=== PATIENT | male | born 1945 | race Caucasian/White ===

== ENCOUNTER 2016-05-30 10:47 | Emergency (ER) | payer OTHER ==
[~2016-05-30] VITALS: Ht 177.8 cm; Wt 90.4 kg
[~2016-05-30 10:47] MED LIST: ASPI81TA28 PO; ATOR-26 PO; CIPR-255 PO; CLOP1TAB15 PO; LPR25 PO; NITR0.4S UT
[2016-05-30 10:59] VITALS: TEMP 36.6; Ht 177.8 cm; Wt 90.4 kg
--- NOTE | 2016-05-30 11:43 | DIAGNOSTIC IMAGING REPORT ---
LEFT FOURTH FINGER 3 VIEWS HISTORY: injured left fourth finger COMPARISON: None. FINDINGS: There is no fracture or dislocation. Soft tissue swelling at the PIP joint. No radiopaque foreign bodies. IMPRESSION: No fractures. Electronically signed by: Cory Trejo M.D. 05/30/2016 11:41 AM Dictated Date/Time: 05/30/2016 11:40 AM
--- NOTE | 2016-05-30 12:06 | EMERGENCY ROOM VISIT NOTE ---
ED Visit Note First contact with patient: 11:18 CHIEF COMPLAINT: Left fourth finger injury yesterday HISTORY OF PRESENT ILLNESS: Patient is a [id number] 71-year-old white male who presents to emergency department for evaluation of pain, swelling and bruising in the left fourth finger after he accidentally hit it with a hammer. He is on aspirin and Plavix. He states that he struck himself near the DIP crease. He developed a blood blister shortly after the initial injury. The tip of the finger was initially swollen, then became bruised, and as the evening went on, the bruising spread through the entire fourth finger. He has stiffness due to the swelling and slight discomfort. He rates his pain a 1/10. He applied ice to the area. REVIEW OF SYSTEMS: Review of systems as per HPI. All other systems reviewed were negative. At least 6 systems reviewed. PMH: Electronic medical records are reviewed and summarized as above/below. See Problem List. SOCIAL HISTORY: Patient lives at home with his . PHYSICAL EXAM: Vital Signs: Reviewed Nurse's notes. CONSTITUTIONAL: Patient is a pleasant 71-year-old white male who is awake and alert and in no acute distress. MUSCULOSKELETAL: Examination of the left fourth finger show circumferential swelling and ecchymosis. He has an intact, flat blood blister on the palmar aspect of the finger over the DIP crease. Range of motion is limited secondary to soft tissue swelling. He is tender primarily at the DIP joint. There is no laceration, no subungual hematoma. EMERGENCY DEPARTMENT COURSE: X-rays of the left fourth finger were obtained and did not note fracture. Patient declined a splint and prescription analgesia. Conservative care measures were discussed. Differential diagnosis includes fracture, dislocation, contusion, crush injury, among others. LEFT FOURTH FINGER 3 VIEWS HISTORY: injured left fourth finger COMPARISON: None. FINDINGS: There is no fracture or dislocation. Soft tissue swelling at the PIP joint. No radiopaque foreign bodies. IMPRESSION: No fractures. Problem List Medical Problems: (1) Complicated UTI (urinary tract infection) Status: Resolved (2) Coronary artery disease Status: Chronic (3) Essential (Primary) Hypertension Status: Chronic (4) Hypercholesteremia Status: Chronic (5) Pyelonephritis Status: Resolved Surgical Problems: (1) Stented coronary artery Status: Resolved Current/Historical Medications Scheduled Aspirin (Aspirin Ec), 81 MG PO DAILY Atorvastatin (Lipitor), 80 MG PO QPM Clopidogrel (Plavix), 75 MG PO DAILY Metoprolol Tartrate (Lopressor), 25 MG PO Q12 Scheduled PRN Nitroglycerin (Nitrostat), 0.4 MG UT UD PRN for Chest Pain Allergies Coded Allergies: No Known Allergies (Verified , 05/30/16) Vital Signs Date Time Temp Pulse Resp B/P Pulse Ox O2 Delivery O2 Flow Rate FiO2 05/30/16 12:32 88 19 123/76 98 05/30/16 10:59 36.6 98 16 129/78 98 Room Air Departure Information Impression Primary Impression: Contusion of finger, left Referrals Negro Michelle M.D. (PCP) Patient Instructions My [facility] Additional Instructions Acetaminophen(Tylenol) may be used for fever or pain. Use 1000mg every six hours as needed. Avoid using more than 3000mg in a 24 hour period. This medication can be taken if you need to drive, work, or perform activities which may be dangerous when taking narcotic pain medication. Ice compresses for 20 minutes at a time four times daily for 2-3 days. Rest and elevate your injury. Continue current medications. Return to the ER immediately for any numbness, tingling, severe pain, extreme swelling in the extremity or as needed. Followup with your family doctor or orthopedic surgery if no improvement in 5-7 days.
[2016-05-30 12:32] VITALS: BP 123/76; PULSE 88; O2SAT 98
== END 2016-05-30 12:34 | disposition home or self-care (01) ==
LOC: C.EDB 10:47 → C.EDD 12:34
DX: S60.042A Contusion of left ring finger without damage to nail, initial encounter (principal); W22.8XXA Striking against or struck by other objects, initial encounter; Z79.82 Long term (current) use of aspirin; Z79.01 Long term (current) use of anticoagulants; Z87.440 Personal history of urinary (tract) infections; I25.10 Atherosclerotic heart disease of native coronary artery without angina pectoris; I10 Essential (primary) hypertension; E78.00 Pure hypercholesterolemia, unspecified; Z95.5 Presence of coronary angioplasty implant and graft

== ENCOUNTER 2016-09-10 17:39 | Emergency (ER) | payer OTHER ==
[~2016-09-10] VITALS: Ht 175.3 cm; Wt 88.7 kg
[~2016-09-10 17:39] MED LIST changes: -CIPR-255 PO
[2016-09-10 17:48] VITALS: TEMP 36.8; Ht 175.3 cm; Wt 88.7 kg
[2016-09-10] MEDS ORDERED: KETOROLAC TROMETHAMINE 60 MG/2 ML VIAL IM STA (18:02)
[2016-09-10] MEDS ORDERED: OXYCODONE HCL IR 5 MG TAB (IMMEDIATE RELEASE) PO STA (18:02)
--- NOTE | 2016-09-10 18:22 | EMERGENCY ROOM VISIT NOTE ---
History Report prepared by Maurice: Ronny Burns Under the Supervision of: Dr. Horacio Palacios D.O. First contact with patient: 17:53 Chief Complaint: BACK PAIN Stated Complaint: BACK PAIN History of Present Illness The patient is a 71 year old male who presents to the Emergency Room with complaints of worsening back pain that began 2 day ago. He rates his pain currently a 7/10 in severity. At this time, the patient was working out, lifting weights, and doing sit ups. He noticed some left sided back pain but did not think anything of it. Last night he rolled over in his sleep and he heard/felt a "pop." He used ice and it was okay today. However, at dinner this evening the patient sneezed and experienced the worst pain of his life in the same area. He became nauseated, lightheaded, and diaphoretic. This has never happened to him before. He denies any chest pain, neck pain, abdominal pain, leg pain, or weakness. He has a past medical history of two cardiac stents. Source of History: patient Onset: two days ago Position: back Symptom Intensity: 7/10 Quality: sharp Timing: worsening Modifying Factors (Worsening): other (Sneezing) Associated Symptoms: + diaphoresis, + nausea, No neck pain, No chest pain, No SOB, No abdominal pain Note: He had an episode of lightheadedness. Review of Systems See HPI for pertinent positives & negatives. A total of 10 systems reviewed and were otherwise negative. Past Medical & Surgical Medical Problems: (1) Complicated UTI (urinary tract infection) (2) Coronary artery disease (3) Essential (Primary) Hypertension (4) Hypercholesteremia (5) Pyelonephritis Surgical Problems: (1) Stented coronary artery Family History FH ischemic heart disease FH: coronary artery bypass surgery FH: diabetes mellitus Social History Smoking Status: Never Smoker Smokeless Tobacco Use: No Alcohol Use: occasionally Drug Use: none Marital Status: Housing Status: lives with family Occupation Status: retired Current/Historical Medications Scheduled Aspirin (Aspirin Ec), 81 MG PO DAILY Atorvastatin (Lipitor), 80 MG PO QPM Clopidogrel (Plavix), 75 MG PO DAILY Metoprolol Tartrate (Lopressor), 25 MG PO Q12 Scheduled PRN Nitroglycerin (Nitrostat), 0.4 MG UT UD PRN for Chest Pain Oxycodone Immediate Rel Tab (Roxicodone Ir), 1-2 TAB PO Q4H PRN for Severe Pain Allergies Coded Allergies: No Known Allergies (Verified , 09/10/16) Physical Exam Vital Signs Date Time Temp Pulse Resp B/P (MAP) Pulse Ox O2 Delivery O2 Flow Rate FiO2 09/10/16 19:21 77 18 141/80 96 09/10/16 17:48 36.8 73 18 133/74 96 Room Air Physical Exam GENERAL: Patient is awake, alert, and in no acute distress. Patient is uncomfortable appearing and showing moderate signs of anxiety. EYES: The conjunctivae are clear. The pupils are round and reactive. EARS, NOSE, MOUTH AND THROAT: The nose is without any evidence of any deformity. Mucous membranes are moist tongue is midline NECK: The neck is nontender and supple. RESPIRATORY: Normal respiratory effort is noted there is no evidence of wheezing rhonchi or rales CARDIOVASCULAR: Regular rate and rhythm noted there no murmurs rubs or gallops normal S1 normal S2 GASTROINTESTINAL: The abdomen is soft. Bowel sounds are present in all quadrants. Abdomen is nontender BACK: Slight tenderness to the midline in the low thoracic and upper lumbar spine. Tenderness is more severe over the left flank and left lateral rib cage. MUSCULOSKELETAL/EXTREMITIES: There is no evidence of gross deformity full range of motion is noted in the hips and shoulders SKIN: There is no obvious evidence of any rash. There are no petechiae, pallor or cyanosis noted. NEUROLOGIC: Patient is awake alert and oriented x3 strength is symmetric patellar reflexes are 2+ bilaterally Medical Decision & Procedures ER Provider Diagnostic Interpretation: Radiology results as stated below per my review and radiologist interpretation: LUMBAR SPINE CT CT DOSE: HISTORY: Low back pain. TECHNIQUE: Multiaxial CT images of the lumbar spine were performed and reformatted in the sagittal and coronal plane without the use of contrast. A dose lowering technique was utilized adhering to the principles of ALARA. COMPARISON: None. FINDINGS: Severe facet osteoarthritis seen from L3 through S1. Mild disc space narrowing at L2-L3 and L5-S1. There is a Schmorl's node at the superior endplate of L3. Small endplate osteophytes throughout the lumbar spine. No fracture or subluxation. Small disc bulges with facet hypertrophy at L2-L3 and L3-L4 resulting in mild central canal narrowing. There is also disc bulge and ligamentum and facet hypertrophy at L4-L5 resulting and moderate to severe central canal narrowing. The visualized retroperitoneal soft tissues are unremarkable. Partial fusion of the bilateral sacroiliac joints. IMPRESSION: No fracture or subluxation within the lumbar spine. Degenerative changes as described above. This is most pronounced at the L4-L5 level. Electronically signed by: Cory Trejo M.D. 09/10/2016 6:39 PM Dictated Date/Time: 09/10/2016 6:[address]IC SPINE WITHOUT CT DOSE: 1407.53 mGy.cm CLINICAL HISTORY: Severe left-sided back pain TECHNIQUE: Helical images were acquired in the transverse plane. Sagittal and coronal reformatted images were acquired. A dose lowering technique was utilized adhering to the principles of ALARA. COMPARISON STUDY: None. FINDINGS: There are dependent atelectatic changes present. No paraspinal masses are visualized in this noncontrast study. There are multilevel degenerative changes present. No acute fractures are visualized. There are no subluxations. No destructive lesions are visualized. IMPRESSION: 1. Mild multilevel degenerative change 2. No acute fractures or traumatic subluxations 3. No destructive lesions are visualized Electronically signed by: Freddy Miranda M.D. 09/10/2016 6:33 PM Dictated Date/Time: 09/10/2016 6:29 PM CHEST ONE VIEW PORTABLE CLINICAL HISTORY: left back pain COMPARISON STUDY: 05/17/2015 FINDINGS: The cardiac and mediastinal contours are normal. There is no evidence of focal pulmonary consolidation. There is no evidence of failure. No pleural effusions are visualized.[ There are minor left basilar atelectatic changes IMPRESSION: No active disease in the chest. Electronically signed by: Freddy Miranda M.D. 09/10/2016 6:42 PM Dictated Date/Time: 09/10/2016 6:42 PM Medications Administered Medications (Trade) Dose Ordered Sig/Leatha Route Start Time Stop Time Status Last Admin Dose Admin Oxycodone HCl (Roxicodone Immediate Rel Tab) 10 mg NOW STAT PO 09/10/16 18:02 09/10/16 18:03 DC 09/10/16 18:12 10 MG Ketorolac Tromethamine (Toradol Inj) 60 mg NOW STAT IM 09/10/16 18:02 09/10/16 18:03 DC 09/10/16 18:12 60 MG Oxycodone HCl (Roxicodone Immediate Rel 5MG Home Pack) 1 homepack UD ONCE PO 09/10/16 19:30 09/10/16 19:31 DC 09/10/16 19:24 1 HOMEPACK ED Course 175: The patient was evaluated in room A10. A complete history and physical examination were performed. 1801: Ordered Toradol Inj 60 mg IM, Oxycodone HCl 10 mg PO 1914: Upon reevaluation, the patient is resting. I discussed the results and treatment plan with him. He verbalized agreement of the treatment plan. He was discharged home. Medical Decision Differential diagnosis: Etiologies such as musculoskeletal, disc herniation, fracture, aortic disease, metastatic disease, cord compression, discitis, infection, renal colic, gastrointestinal, acute exacerbation of chronic back pain, sciatica, cauda equina, as well as others were entertained. The patient is a 71-year-old male who presented to the emergency department for an evaluation of mid back pain. The patient states that he had musculoskeletal back pain which began after lifting. He states that he felt a "pop" in his back and his had back spasm and pain since. The patient was treated with pain medication in the emergency department. I discussed the patient's radiographic studies with him. He was encouraged to rest and avoid any strenuous activity. He was encouraged to continue all medications as prescribed and call his family doctor to schedule a follow-up appointment. He was also encouraged to return the emergency apartment immediately if symptoms change worsen or the need arises. Medication Reconcilliation Current Medication List: was personally reviewed by me Blood Pressure Screening Patient's blood pressure: Normal blood pressure Blood pressure disposition: Did not require urgent referral Impression Primary Impression: Low back pain Additional Impression: Mid back pain Scribe Attestation The scribe's documentation has been prepared under my direction and personally reviewed by me in its entirety. I confirm that the note above accurately reflects all work, treatment, procedures, and medical decision making performed by me. Departure Information Dispostion Home / Self-Care Prescriptions Oxycodone Immediate Rel Tab (ROXICODONE IR) 5 Mg Tab 1-2 TAB PO Q4H Y for Severe Pain, #24 TAB Prov: Horacio Palacios, 09/10/16 Referrals Negro Michelle M.D. (PCP) Forms HOME CARE DOCUMENTATION FORM, IMPORTANT VISIT INFORMATION Patient Instructions ED Low Back Pain Injury, My [facility] Additional Instructions Call your family to schedule a follow-up appointment. Rest and avoid any strenuous activity. Continue all medications as prescribed. Try using Motrin and Tylenol as directed for mild pain. Return to the emergency apartment immediately if symptoms change worsen or the need arises. Problem Qualifiers Primary Impression: Low back pain Chronicity: acute Back pain laterality: left Sciatica presence: unspecified whether sciatica present Qualified Codes: M54.5 - Low back pain
--- NOTE | 2016-09-10 18:34 | DIAGNOSTIC IMAGING REPORT ---
CT THORACIC SPINE WITHOUT CT DOSE: 1407.53 mGy.cm CLINICAL HISTORY: Severe left-sided back pain TECHNIQUE: Helical images were acquired in the transverse plane. Sagittal and coronal reformatted images were acquired. A dose lowering technique was utilized adhering to the principles of ALARA. COMPARISON STUDY: None. FINDINGS: There are dependent atelectatic changes present. No paraspinal masses are visualized in this noncontrast study. There are multilevel degenerative changes present. No acute fractures are visualized. There are no subluxations. No destructive lesions are visualized. IMPRESSION: 1. Mild multilevel degenerative change 2. No acute fractures or traumatic subluxations 3. No destructive lesions are visualized Electronically signed by: Freddy Miranda M.D. 09/10/2016 6:33 PM Dictated Date/Time: 09/10/2016 6:29 PM
--- NOTE | 2016-09-10 18:40 | DIAGNOSTIC IMAGING REPORT ---
LUMBAR SPINE CT CT DOSE: HISTORY: Low back pain. TECHNIQUE: Multiaxial CT images of the lumbar spine were performed and reformatted in the sagittal and coronal plane without the use of contrast. A dose lowering technique was utilized adhering to the principles of ALARA. COMPARISON: None. FINDINGS: Severe facet osteoarthritis seen from L3 through S1. Mild disc space narrowing at L2-L3 and L5-S1. There is a Schmorl's node at the superior endplate of L3. Small endplate osteophytes throughout the lumbar spine. No fracture or subluxation. Small disc bulges with facet hypertrophy at L2-L3 and L3-L4 resulting in mild central canal narrowing. There is also disc bulge and ligamentum and facet hypertrophy at L4-L5 resulting and moderate to severe central canal narrowing. The visualized retroperitoneal soft tissues are unremarkable. Partial fusion of the bilateral sacroiliac joints. IMPRESSION: No fracture or subluxation within the lumbar spine. Degenerative changes as described above. This is most pronounced at the L4-L5 level. Electronically signed by: Cory Trejo M.D. 09/10/2016 6:39 PM Dictated Date/Time: 09/10/2016 6:29 PM
--- NOTE | 2016-09-10 18:44 | DIAGNOSTIC IMAGING REPORT ---
CHEST ONE VIEW PORTABLE CLINICAL HISTORY: left back pain COMPARISON STUDY: 05/17/2015 FINDINGS: The cardiac and mediastinal contours are normal. There is no evidence of focal pulmonary consolidation. There is no evidence of failure. No pleural effusions are visualized.[ There are minor left basilar atelectatic changes IMPRESSION: No active disease in the chest. Electronically signed by: Freddy Miranda M.D. 09/10/2016 6:42 PM Dictated Date/Time: 09/10/2016 6:42 PM
[2016-09-10] MEDS ORDERED: OXYC1TAB3 PO (18:56)
[2016-09-10 19:21] VITALS: BP 141/80; PULSE 77; O2SAT 96
[2016-09-10] MEDS ORDERED: OXYCODONE IR HOME PACK PO ONE (19:30)
== END 2016-09-10 19:22 | disposition home or self-care (01) ==
LOC: C.EDB 17:39 → C.EDA 19:22
DX: M54.5 Low back pain (principal); I10 Essential (primary) hypertension; E78.00 Pure hypercholesterolemia, unspecified; I25.10 Atherosclerotic heart disease of native coronary artery without angina pectoris; Z87.440 Personal history of urinary (tract) infections; Z98.61 Coronary angioplasty status; Z79.82 Long term (current) use of aspirin; Z79.899 Other long term (current) drug therapy; Z83.3 Family history of diabetes mellitus; Z82.49 Family history of ischemic heart disease and other diseases of the circulatory system

== ENCOUNTER 2017-06-18 20:50 | Inpatient (IN) | payer OTHER ==
[~2017-06-18] VITALS: Ht 175.3 cm; Wt 89.9 kg
[~2017-06-18 20:50] MED LIST changes: -ASPI81TA28 PO; -ATOR-26 PO; -NITR0.4S UT
[2017-06-18] MEDS ORDERED: NITROGLYCERIN 2% OINTMENT 30GM TUBE EXT ONE (21:00)
--- NOTE | 2017-06-18 21:09 | DIAGNOSTIC IMAGING REPORT ---
CHEST ONE VIEW PORTABLE HISTORY: 72 years-old Male Chest Pain acute atypical chest pain COMPARISON: Chest radiograph 09/10/2016 TECHNIQUE: Portable AP view of the chest FINDINGS: Cardiomediastinal and hilar silhouettes are within normal limits. No pneumothorax, pleural effusion or overt pulmonary edema. Linear subsegmental left basilar opacities compatible with atelectasis. Degenerative changes of the shoulders and spine. IMPRESSION: No acute process. The above report was generated using voice recognition software. It may contain grammatical, syntax or spelling errors. Electronically signed by: Vimal James M.D. 06/18/2017 9:08 PM Dictated Date/Time: 06/18/2017 9:07 PM
--- NOTE | 2017-06-18 21:18 | EMERGENCY ROOM VISIT NOTE ---
History First contact with patient: 20:57 Chief Complaint: CHEST PAIN Stated Complaint: CHEST PAIN History of Present Illness The patient is a 72 year old male who presents to the Emergency Room of chest pressure. Patient with onset this afternoon of substernal chest pressure and mild left arm radiation. This occurred twice over the last 3 days with increased exertion. Mild associated shortness of breath. No leg pain/swelling , palpitations, nausea, syncope, weakness, nor other symptoms. Exertion makes worse, rest makes better. Given ASA 324 and SLNTG x 3 by EMS with essential resolution of chest pain. No trauma nor injuries. Recently increased lifting. Admits recent car trip to [place]. No history of PE/DVT. He admits history of IN with cath/stents in 2008. Stress test several years ago without further work-up. He takes Asa 81mg daily. Was on Plavix until 6 months ago. Review of Systems See HPI for pertinent positives & negatives. A total of 10 systems reviewed and were otherwise negative. Past Medical/Surgical History Medical Problems: (1) Chest pain (2) Complicated UTI (urinary tract infection) (3) Coronary artery disease (4) Essential (Primary) Hypertension (5) Hypercholesteremia (6) Pyelonephritis Surgical Problems: (1) Stented coronary artery Family History FH ischemic heart disease FH: coronary artery bypass surgery FH: diabetes mellitus Social History Smoking Status: Former Smoker Alcohol Use: occasionally Drug Use: none Marital Status: Housing Status: lives with family Occupation Status: retired Current/Historical Medications Scheduled Aspirin (Aspirin Ec), 81 MG PO DAILY Atorvastatin (Lipitor), 80 MG PO QPM Metoprolol Tartrate (Lopressor), 25 MG PO Q12 Scheduled PRN Nitroglycerin (Nitrostat), 0.4 MG UT UD PRN for Chest Pain Physical Exam Vital Signs Date Time Temp Pulse Resp B/P (MAP) Pulse Ox O2 Delivery O2 Flow Rate FiO2 06/18/17 23:31 105/68 06/18/17 23:25 63 94/71 95 06/18/17 23:12 89/66 06/18/17 23:00 92/65 06/18/17 22:55 68 12 95 06/18/17 22:50 70 95 Room Air 06/18/17 22:30 96/61 06/18/17 22:21 101/59 06/18/17 22:20 62 17 93 06/18/17 22:15 115/60 06/18/17 22:00 64 19 105/67 93 Room Air 06/18/17 21:16 Room Air 06/18/17 21:10 Room Air 06/18/17 21:05 36.7 82 15 118/78 93 Room Air 06/18/17 21:01 78 Physical Exam GENERAL: Patient is tired appearing and in no acute distress. EYES: No scleral icterus, unremarkable pupils. ENT: Mucous membranes moist, no nasal congestion. NECK: No masses appreciated, no meningismus, trachea is midline. RESPIRATORY: No dyspnea. Clear to auscultation and equal bilaterally. No wheeze , no rhonchi. CARDIOVASCULAR: Regular rate and rhythm. No murmurs, rubs, gallops appreciated. GASTROINTESTINAL: Abdomen soft, nontender, no peritonitis. Bowel sounds positive. No masses appreciated. BACK: No midline tenderness, no CVA tenderness EXTREMITIES: Normal motion all extremities, no cyanosis, no edema. NEUROLOGIC: Alert and oriented, no acute motor or sensory deficits, no focal weakness, cranial nerves grossly intact. SKIN: No rash, no jaundice, no diaphoresis. Medical Decision & Procedures ER Provider Diagnostic Interpretation: X ray results are stated below per my interpretation: Chest: 1 view: No infiltrate, no effusion, normal cardiac border. Laboratory Results 06/18/17 00:00 Red Blood Count 4.87, Mean Corpuscular Volume 90.6, Mean Corpuscular Hemoglobin 33.5, Mean Corpuscular Hemoglobin Concent 37.0, Mean Platelet Volume 9.2, Neutrophils (%) (Auto) 51.9, Lymphocytes (%) (Auto) 31.4, Monocytes (%) (Auto) 13.3, Eosinophils (%) (Auto) 3.0, Basophils (%) (Auto) 0.3, Neutrophils # (Auto ) 4.01, Lymphocytes # (Auto) 2.43, Monocytes # (Auto) 1.03, Eosinophils # (Auto ) 0.23, Basophils # (Auto) 0.02 06/18/17 00:00 Test 06/18/17 00:00 White Blood Count 7.73 K/uL (4.8-10.8) Red Blood Count 4.87 M/uL (4.7-6.1) Hemoglobin 16.3 g/dL (14.0-18.0) Hematocrit 44.1 % (42-52) Mean Corpuscular Volume 90.6 fL (80-100) Mean Corpuscular Hemoglobin 33.5 pg (25-34) Mean Corpuscular Hemoglobin Concent 37.0 g/dl (32-36) Platelet Count 221 K/uL (130-400) Mean Platelet Volume 9.2 fL (7.4-10.4) Neutrophils (%) (Auto) 51.9 % Lymphocytes (%) (Auto) 31.4 % Monocytes (%) (Auto) 13.3 % Eosinophils (%) (Auto) 3.0 % Basophils (%) (Auto) 0.3 % Neutrophils # (Auto) 4.01 K/uL (1.4-6.5) Lymphocytes # (Auto) 2.43 K/uL (1.2-3.4) Monocytes # (Auto) 1.03 K/uL (0.11-0.59) Eosinophils # (Auto) 0.23 K/uL (0-0.5) Basophils # (Auto) 0.02 K/uL (0-0.2) RDW Standard Deviation 41.6 fL (36.4-46.3) RDW Coefficient of Variation 12.6 % (11.5-14.5) Immature Granulocyte % (Auto) 0.1 % Immature Granulocyte # (Auto) 0.01 K/uL (0.00-0.02) Prothrombin Time 11.4 SECONDS (9.0-12.0) Prothromb Time International Ratio 1.1 (0.9-1.1) Activated Partial Thromboplast Time 25.8 SECONDS (21.0-31.0) Partial Thromboplastin Ratio 1.0 D-Dimer 220 ug/L FEU (0-500) Anion Gap 12.0 mmol/L (3-11) Est Creatinine Clear Calc Drug Dose 67.8 ml/min Estimated GFR () 78.2 Estimated GFR (Non- 67.5 BUN/Creatinine Ratio 17.9 (10-20) Calcium Level 8.6 mg/dl (8.5-10.1) Total Creatine Kinase 343 U/L (39-308) Creatine Kinase MB 6.0 ng/ml (0.5-3.6) Creatine Kinase MB Ratio 1.7 (0-3.0) Troponin I 0.129 ng/ml (0-0.045) Triglycerides Level 231 mg/dl (0-150) Cholesterol Level 131 mg/dl (0-200) HDL Cholesterol 45 mg/dl LDL Cholesterol, Calculated 40 mg/dl VLDL Cholesterol, Calculated 46 mg/dl Cholesterol/HDL Ratio 2.9 Medications Administered Medications (Trade) Dose Ordered Sig/Leatha Route Start Time Stop Time Status Last Admin Dose Admin Nitroglycerin (Nitroglycerin 2% Oint) 1 inch NOW ONCE EXT 06/18/17 21:00 06/18/17 21:01 DC 06/18/17 21:02 1 INCH Heparin Sodium (Porcine) (Heparin Iv Bolus) 10,000 unit STK-MED ONCE .ROUTE 06/18/17 22:12 06/18/17 22:13 DC 06/18/17 22:19 10,000 UNIT Heparin Sodium/ Dextrose (Heparin 25,000 Unit/500ml D5W) 25,000 unit STK-MED ONCE .ROUTE 06/18/17 22:12 06/18/17 22:13 DC 06/18/17 22:18 25,000 UNIT ECG Per My Interpretation Indication: chest pain Rate (beats per minute): 81 Rhythm: sinus rhythm Findings: 1st degree AV block Comparison ECG Date: 10-12-15 Change: Increased 1st AV block from MA 238 to 304. Otherwise similar morphology. Medical Decision Differential: Cardiac Ischemia (STEMI, NSTEMI, Unstable Angina, etc), Aortic Dissection, Arrhythmia, Pulmonary Embolism, Pneumonia, Pneumothorax, MSK, Infectious, Pericarditis/Myocarditis, Esophageal Rupture, Gastrointestinal, amongst other pathologies entertained. 72 yr old male arrives for evaluation of substernal chest pressure and mild radiation essentially resolved with SLNTG with EMS. Already received 324mg ASA. He has excellent pulses, no tearing pain and CXR without mediastinal widening thus I feel this is unlikely dissection, especially given dimer is negative. He did have recent trip to [place] thus reason dimer was ordered which was negative and in setting of otherwise no DVT/PE risks I do not feel he requires CTA chest. EKG with worsening 1st AV block but otherwise seems similar to previous EKG. Mild hypotension which appears to be his baseline and he states that his BP runs low. Labs with positive Trop of .1 which while not very high, given his symptoms I feel this is consistent with NSTEMI. After discussion about risks/benefits heparin he agrees. At time of starting heparin he has no headache, no recent head injury, no current chest pain, no black/ bloody stools, no bleeding disorder nor other contraindications to heparin. He is feeling well and pain free. He was stable throughout stay and admitted to [facility] for further treatment. Multiple re-evaluations made of patient throughout stay and stable throughout. Head Trauma GCS Score: 15 Medication Reconcilliation Current Medication List: was personally reviewed by me Blood Pressure Screening Patient's blood pressure: Normal blood pressure Impression Primary Impression: NSTEMI (non-ST elevated myocardial infarction) Additional Impression: 1st degree AV block Departure Information Referrals Negro Michelle M.D. (PCP) Patient Instructions My [facility] Problem Qualifiers
[2017-06-18 21:21] LABS: INR 1.1 (0.9-1.1); PTT PATIENT 25.8 SECONDS (21.0-31.0)
[2017-06-18 21:29] LABS: BASO % 0.3 %; BASO ABS # 0.02 K/uL (0-0.2); EOS ABS # 0.23 K/uL (0-0.5); HEMATOCRIT 44.1 % (42-52); HEMOGLOBIN 16.3 g/dL (14.0-18.0); IG# 0.01 K/uL (0.00-0.02); LYMPH % 31.4 %; LYMPH ABS # 2.43 K/uL (1.2-3.4); MEAN CELL VOLUME 90.6 fL (80-100); MEAN CORPUSCULAR HEMOGLOBIN 33.5 pg (25-34); MEAN PLATELET VOLUME 9.2 fL (7.4-10.4); MONO % 13.3 %; MONO ABS # 1.03 K/uL (0.11-0.59); NEUT % 51.9 %; NEUT ABS # 4.01 K/uL (1.4-6.5); PLATELET COUNT 221 K/uL (130-400); RED CELL DISTRIBUTION WIDTH CV 12.6 % (11.5-14.5); RED CELL DISTRIBUTION WIDTH SD 41.6 fL (36.4-46.3); WHITE BLOOD COUNT 7.73 K/uL (4.8-10.8)
[2017-06-18 21:33] LABS: CALCIUM 8.6 mg/dl (8.5-10.1); CREATININE 1.09 mg/dl (0.60-1.40); POTASSIUM 3.6 mmol/L (3.5-5.1)
[2017-06-18] MEDS ORDERED: HEPARIN 25000 UNIT/500 ML D5W ONE (22:12)
[2017-06-18] MEDS ORDERED: HEPARIN SOD (PORCINE) 1000 UNIT/ML 10 ML VIAL ONE (22:12)
[2017-06-18] MEDS ORDERED: NITR0.4S UT (22:34)
[2017-06-18] MEDS ORDERED: ASPI81TA28 PO (22:34)
[2017-06-18] MEDS ORDERED: ATOR-26 PO (22:34)
[2017-06-18] MEDS ORDERED: NITROGLYCERIN 0.4 MG SL PER TAB CHARGE SL PRN (23:45)
--- NOTE | 2017-06-18 23:55 | History and Physical ---
History & Physical Date & Time of Service: June 18, 2017 at 23:55 Chief Complaint: Chest Pain Primary Care Physician: Negro Michelle M.D. History of Present Illness Source: patient, spouse, clinic records, hospital records 72 years old male with past medical history of CAD, dyslipidemia, hypertension, reflux esophagitis present to the ER with chief complaint of chest pain. Patient said he had 3 episodes of chest pain in the past 3 days (, Tuesday, and Tuesday) that occurred around 8 PM in the past 3 nights. Patient said chest pain occur while at rest. Described the pain located in the substernal area, pressure-like, nonradiating. Patient said the first 2 chest pain resolved after a few minutes and the next day he feels fine. He said last night chest pain did not resolve. He said that he received aspirin and sublingual nitro by EMS that helped with the chest pain. As per , patient has been doing a lot of lifting in the past weeks. He recently came from a recent car trip from [facility]. Patient said that he had a LA in 2008 and said that this chest pain is different from the one back in 2008 because the one in 2008 was sharp and very intense. Patient said that he is very active. He said that he feels tired and attributed that to the recent trip. currently patient said that he feels fine and chest pain resolved . In the ER troponin mildly elevated. denies any diaphoreses, palpitation, shortness of breath, dizziness, and fever. Past Medical/Surgical History Medical Problems: (1) Chest pain (2) Complicated UTI (urinary tract infection) (3) Contusion of finger, left (4) Coronary artery disease (5) Essential (Primary) Hypertension (6) Hypercholesteremia (7) Low back pain (8) Mid back pain (9) Pyelonephritis (10) UTI (urinary tract infection) Surgical Problems: (1) Stented coronary artery Family History FH ischemic heart disease FH: coronary artery bypass surgery FH: diabetes mellitus Social History Smoking Status: Former Smoker Drug Use: none Marital Status: Occupational Status: retired Immunizations History of Influenza Vaccine: Yes Influenza Vaccine Date: Jan 09, 2013 History of Tetanus Vaccine?: Yes History of Pneumococcal: Yes Pneumococcal Date: Jan 09, 2013 History of Hepatitis B Vaccine: No Allergies Coded Allergies: No Known Allergies (Verified , 09/10/16) Home Medications Scheduled Aspirin (Aspirin Ec), 81 MG PO DAILY Atorvastatin (Lipitor), 80 MG PO QPM Metoprolol Tartrate (Lopressor), 25 MG PO Q12 Scheduled PRN Nitroglycerin (Nitrostat), 0.4 MG UT UD PRN for Chest Pain Review of Systems Constitutional: + fatigue, No fever, No chills Eyes: No worsening of vision, No eye pain, No diplopia ENT: No nasal symptoms, No sore throat, No trouble swallowing Respiratory: No cough, No sputum, No shortness of breath, No dyspnea on exertion Cardiovascular: + chest pain, No claudication, No palpitations Abdomen: No pain, No vomiting, No diarrhea Musculoskeletal: No calf pain Genitourinary - Male: No hematuria, No dysuria Neurologic: No memory loss, No paralysis, No balance problems Psychiatric: No substance abuse Endocrine: + fatigue Hematologic / Lymphatic: No abnormal bleeding/bruising Integumentary: No rash, No itch Physical Exam Vital Signs Date Time Temp Pulse Resp B/P (MAP) Pulse Ox O2 Delivery O2 Flow Rate FiO2 06/18/17 23:31 105/68 06/18/17 23:25 63 94/71 95 06/18/17 23:12 89/66 06/18/17 23:00 92/65 06/18/17 22:55 68 12 95 06/18/17 22:50 70 95 Room Air 06/18/17 22:30 96/61 06/18/17 22:21 101/59 06/18/17 22:20 62 17 93 06/18/17 22:15 115/60 06/18/17 22:00 64 19 105/67 93 Room Air 06/18/17 21:16 Room Air 06/18/17 21:10 Room Air 06/18/17 21:05 36.7 82 15 118/78 93 Room Air 06/18/17 21:01 78 General Appearance: WD/WN, no apparent distress Head: normocephalic, atraumatic Eyes: PERRL, EOMI ENT: hearing grossly normal Neck: no JVD, trachea midline Respiratory/Chest: normal breath sounds, no respiratory distress, no accessory muscle use Cardiovascular: regular rate, rhythm, no JVD, no murmur Abdomen/GI: normal bowel sounds, non tender, soft Back: no CVA tenderness Extremities/Musculoskelatal: no calf tenderness Neurologic/Psych: no motor/sensory deficits, alert, normal mood/affect, oriented x 3 Skin: warm/dry, no rash Diagnostics Laboratory Results Results Past 24 Hours Test 06/18/17 00:00 06/18/17 23:49 Range/Units White Blood Count 7.73 4.8-10.8 K/uL Red Blood Count 4.87 4.7-6.1 M/uL Hemoglobin 16.3 14.0-18.0 g/dL Hematocrit 44.1 42-52 % Mean Corpuscular Volume 90.6 80-100 fL Mean Corpuscular Hemoglobin 33.5 25-34 pg Mean Corpuscular Hemoglobin Concent 37.0 32-36 g/dl Platelet Count 221 130-400 K/uL Mean Platelet Volume 9.2 7.4-10.4 fL Neutrophils (%) (Auto) 51.9 % Lymphocytes (%) (Auto) 31.4 % Monocytes (%) (Auto) 13.3 % Eosinophils (%) (Auto) 3.0 % Basophils (%) (Auto) 0.3 % Neutrophils # (Auto) 4.01 1.4-6.5 K/uL Lymphocytes # (Auto) 2.43 1.2-3.4 K/uL Monocytes # (Auto) 1.03 0.11-0.59 K/uL Eosinophils # (Auto) 0.23 0-0.5 K/uL Basophils # (Auto) 0.02 0-0.2 K/uL RDW Standard Deviation 41.6 36.4-46.3 fL RDW Coefficient of Variation 12.6 11.5-14.5 % Immature Granulocyte % (Auto) 0.1 % Immature Granulocyte # (Auto) 0.01 0.00-0.02 K/uL Prothrombin Time 11.4 9.0-12.0 SECONDS Prothromb Time International Ratio 1.1 0.9-1.1 Activated Partial Thromboplast Time 25.8 21.0-31.0 SECONDS Partial Thromboplastin Ratio 1.0 D-Dimer 220 0-500 ug/L FEU Sodium Level 142 136-145 mmol/L Potassium Level 3.6 3.5-5.1 mmol/L Chloride Level 109 98-107 mmol/L Carbon Dioxide Level 21 21-32 mmol/L Anion Gap 12.0 3-11 mmol/L Blood Urea Nitrogen 20 7-18 mg/dl Creatinine 1.09 0.60-1.40 mg/dl Est Creatinine Clear Calc Drug Dose 67.8 ml/min Estimated GFR () 78.2 Estimated GFR (Non- 67.5 BUN/Creatinine Ratio 17.9 10-20 Random Glucose 102 70-99 mg/dl Calcium Level 8.6 8.5-10.1 mg/dl Total Creatine Kinase 343 39-308 U/L Creatine Kinase MB 6.0 0.5-3.6 ng/ml Creatine Kinase MB Ratio 1.7 0-3.0 Troponin I 0.129 0-0.045 ng/ml Diagnostic Radiology CHEST ONE VIEW PORTABLE HISTORY: 72 years-old Male Chest Pain acute atypical chest pain COMPARISON: Chest radiograph 09/10/2016 TECHNIQUE: Portable AP view of the chest FINDINGS: Cardiomediastinal and hilar silhouettes are within normal limits. No pneumothorax, pleural effusion or overt pulmonary edema. Linear subsegmental left basilar opacities compatible with atelectasis. Degenerative changes of the shoulders and spine. IMPRESSION: No acute process. The above report was generated using voice recognition software. It may contain grammatical, syntax or spelling errors. Electronically signed by: Vimal James M.D. 06/18/2017 9:08 PM Dictated Date/Time: 06/18/2017 9:07 PM Impression Assessment and Plan Chest pain Possible NSTEMI Initial troponin elevated EKG showed no ST changes D-dimer within normal limits Was started on heparin drip in the ER Continue heparin infusion Check troponin 2 Consult cardiology Check echo in a.m. Repeat EKG in a.m. Keep n.p.o. Continue monitoring telemetry continue aspirin, atorvastatin, and metoprolol HTN BP in the low side If BP remains low we, will hold metoprolol We will monitor BP closely Dyslipidemia LDL at goal Continue atorvastatin DVT prophylaxis on heparin drip CODE STATUS DNR Resuscitation Status VTE Prophylaxis Will order VTE Prophylaxis: Yes
[2017-06-19] VITALS (9 sets, daily range): BP systolic 95–132; BP diastolic 59–76; PULSE 52–61; TEMP 36.4–37; O2SAT 92–96; Ht 175.3 cm; Wt 89.9 kg
[2017-06-19] MEDS: HEPARIN 25,000 UNIT/500ML D5W 500 ML IV SCH ×3 (03:27→16:00)
[2017-06-19 05:53] LABS: CALCIUM 8.1 mg/dl (8.5-10.1); CREATININE 1.02 mg/dl (0.60-1.40); POTASSIUM 3.9 mmol/L (3.5-5.1)
[2017-06-19 05:56] LABS: PTT PATIENT 69.9 SECONDS (21.0-31.0)
[2017-06-19] MEDS: METOPROLOL TARTRATE 25 MG TAB PO SCH ×2 (08:13→20:07)
[2017-06-19] MEDS: ASPIRIN 81 MG ECTAB PO SCH (08:13)
--- NOTE | 2017-06-19 09:26 | ECHOCARDIOGRAM REPORT ---
*NOTICE TO RECEIVING [employer]Y This information is strictly Confidential and protected under [place] law. [place] law prohibits you from making any further disclosure of this information unless further disclosure is expressly permitted by the written consent of the person to whom it pertains or is authorized by law. A general authorization for the release of medical or other information is not sufficient for this purpose. Hospital accepts no responsibility if the information is made available to any other person, INCLUDING THE PATIENT. Interpretation Summary * Name: RAMILA SOSA Study Date: 06/19/2017 06:49 AM BP: 97/59 mmHg * Patient Location: C.2T\S\S238\S\2 HR: 52 * : 1945 (M/d/yyyy) Gender: Male Height: 69 in * Age: 72 yrs Ethnicity: CA Weight: 197 lb * Ordering Physician: Chirag Villarreal * Referring Physician: Self, Referred * Performed By: Cherry Kidd RDCS * * Reason For Study: Chest pain * BSA: 2.1 m2 * -- Conclusions -- * Normal LV chamber size and wall thickness. * Normal LV systolic function, EF 60-65%. * No segmental left ventricular wall motion abnormalities are noted. * Grade II diastolic dysfunction. * Aortic valve sclerosis mild, without significant aortic valvular stenosis. Procedure Details * A complete two-dimensional transthoracic echocardiogram was performed (2D, M-mode, Doppler and color flow Doppler). Left Ventricle * The left ventricle is normal in size. * There is normal left ventricular wall thickness. * Ejection Fraction = 60-65%. * Left ventricular systolic function is normal. * No segmental left ventricular wall motion abnormalities are noted. * The left ventricular wall motion is normal. Right Ventricle * The right ventricular cavity size is normal (basal dimension <4.2 cm in right ventricular apical 4-chamber view). * The right ventricular systolic function is normal as assessed by tricuspid annular plane systolic excursion (TAPSE) (normal >1.5 cm). Atria * The left atrial size is normal. * Right atrial size is normal. * No ASD detected; PFO is not assessed. Mitral Valve * The mitral valve is normal. Tricuspid Valve * The tricuspid valve is normal in structure and function. Aortic Valve * The aortic valve is trileaflet. * Aortic valve sclerosis mild, without significant aortic valvular stenosis. * There is no significant aortic regurgitation. Pulmonic Valve * The pulmonary valve is not well seen, but the Doppler examination is normal without significant regurgitation or stenosis. Great Vessels * The aortic root and proximal ascending aorta are normal sized. Pericardium/Pleural * There is no pericardial effusion. Left Ventricular Diastolic Function * Diastolic dysfunction, Grade II (pseudonormalization pattern). MMode 2D Measurements and Calculations IVSd 0.93 cm LVIDd 4.5 cm LVIDs 3.0 cm LVPWd 0.87 cm IVS/LVPW 1.1 FS 33.7 % EDV(Teich) 92.2 ml ESV(Teich) 34.4 ml EF(Teich) 62.7 % EDV(cubed) 90.8 ml ESV(cubed) 26.4 ml EF(cubed) 70.9 % LV mass(C)d 132.6 grams LV mass(C)dI 64.6 grams/m\S\2 SV(Teich) 57.8 ml SI(Teich) 28.2 ml/m\S\2 SV(cubed) 64.4 ml SI(cubed) 31.4 ml/m\S\2 Ao root diam 3.1 cm Ao root area 7.6 cm\S\2 ACS 2.3 cm LA dimension 3.5 cm asc Aorta Diam 3.1 cm LA/Ao 1.1 LVOT diam 2.0 cm LVOT area 3.0 cm\S\2 LVAd ap4 26.6 cm\S\2 LVLd ap4 7.7 cm EDV(MOD-sp4) 77.0 ml EDV(sp4-el) 77.9 ml LVAs ap4 15.0 cm\S\2 LVLs ap4 6.8 cm ESV(MOD-sp4) 29.1 ml ESV(sp4-el) 28.3 ml EF(MOD-sp4) 62.2 % EF(sp4-el) 63.8 % LVAd ap2 28.9 cm\S\2 LVLd ap2 7.3 cm EDV(MOD-sp2) 94.6 ml EDV(sp2-el) 97.4 ml LVAs ap2 16.9 cm\S\2 LVLs ap2 6.3 cm ESV(MOD-sp2) 36.5 ml ESV(sp2-el) 38.2 ml EF(MOD-sp2) 61.4 % EF(sp2-el) 60.8 % LVLd %diff -5.64 % EDV(MOD-bp) 87.6 ml LVLs %diff -6.78 % ESV(MOD-bp) 32.7 ml EF(MOD-bp) 62.7 % SV(MOD-sp4) 47.9 ml SI(MOD-sp4) 23.3 ml/m\S\2 SV(MOD-sp2) 58.1 ml SI(MOD-sp2) 28.3 ml/m\S\2 SV(MOD-bp) 54.9 ml SI(MOD-bp) 26.7 ml/m\S\2 SV(sp4-el) 49.7 ml SI(sp4-el) 24.2 ml/m\S\2 SV(sp2-el) 59.3 ml SI(sp2-el) 28.9 ml/m\S\2 Doppler Measurements and Calculations MV E max beltran 70.1 cm/sec MV A max beltran 63.6 cm/sec MV E/A 1.1 MV dec time 0.23 sec Ao V2 max 98.9 cm/sec Ao max PG 3.9 mmHg Ao max PG (full) 2.3 mmHg JEROME(V,A) 1.9 cm\S\2 JEROME(V,D) 1.9 cm\S\2 LV V1 max PG 1.6 mmHg LV V1 max 63.6 cm/sec PA V2 max 79.4 cm/sec PA max PG 2.5 mmHg PA acc slope 307.1 cm/sec\S\2 PA acc time 0.15 sec TR max beltran 155.4 cm/sec PA pr(Accel) 10.3 mmHg
--- NOTE | 2017-06-19 12:08 | CARDIOLOGY CONSULTATION ---
DATE OF CONSULTATION: 06/19/2017 CONSULTATION REQUESTED BY: Dr. Villarreal. REASON FOR CONSULTATION: Chest discomfort. HISTORY OF PRESENT ILLNESS: Mr. Wong is a very pleasant 72-year-old gentleman who normally follows with Dr. River of our cardiology practice. He presented to [facility] via EMS in the evening of 06/18/2017 with a complaint of chest discomfort. The patient states that this all started when he and his were busy for 3 days earlier this week at a [employer]. He states he was spending a lot time in the sun, being active and knows that he probably did not drink enough water. Three days ago, he came home from the [employer] and was sitting at home in his normal state of health when he suddenly developed chest discomfort. He described it as a pressure sensation on his right sternal border. He states it was just a pressure sensation or a heaviness, it just seemed to sit there. At that time, he also felt very tired, so he laid down, and after a few moments, it resolved. He did not have any discomfort while he was active during the day. The next day, he was then traveled back home with his , he was active doing things around the house and again felt fine all day until that evening when around 7 or 8 at night he was sitting there and again developed the same exact chest discomfort. With both of these episodes, he denied any associated symptoms with it. Specifically, denied any associated radiation of the discomfort, shortness of breath, diaphoresis, nausea, palpitations, lightheadedness, dizziness, or syncope. Again after the second episode, he simply laid down, and after a few more minutes this time the pain resolved. Then last evening on the , again, throughout the day, he was in his normal state of health with no complaints, active, working around the house, when last night he had the same exact discomfort, but this time much more severe. Again, it was a pressure sensation along the right sternal border. No associated symptoms. However, this episode did not resolve with relaxation and he seemed even more tired than normal. At that point, he became concerned and EMS was called. He states that after an hour, this discomfort slowly started resolving on its own. When EMS arrived, he was given sublingual nitro and baby aspirin, and with that, the discomfort completely resolved. He has not had any further chest discomfort since then, but he has felt extremely tired and wiped out. In the Emergency Department, his EKG was unremarkable. However, his initial troponin was minimally elevated, so he was appropriately started on heparin and admitted to telemetry. Again, he has been stable overnight, but a second set of enzymes again came back even higher with a troponin of 0.6. His initial CPK was also elevated at 343, again his EKG is unchanged. PAST SURGICAL HISTORY: 1. PCI with drug-eluting stent to the proximal LAD in 2008. 2. Colonoscopy. MEDICAL ILLNESSES: 1. Coronary artery disease. 2. GERD. 3. Hypertension. 4. Dyslipidemia, controlled. FAMILY HISTORY: Remarkable for 2 brothers who developed coronary artery disease in their 40s. SOCIAL HISTORY: Denies any alcohol, tobacco or recreational drug use. He is and lives at home with his . 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 He is very active. He exercises on a regular basis and is very active around the house. He notes that he is currently putting a new floor in his dining room and he recently built a castle for his granddaughter. REVIEW OF SYSTEMS: As per HPI, all other systems reviewed and negative at this time. ALLERGIES: No known drug allergies. MEDICATIONS AN OUTPATIENT: 1. Aspirin 81 mg daily. 2. Atorvastatin 80 mg daily. 3. Metoprolol tartrate 25 mg b.i.d. PHYSICAL EXAMINATION: VITALS: Temperature 36.6, pulse 61, respiratory rate 12, blood pressure 101/62. GENERAL: Awake, alert, oriented x3, in no acute distress, younger in appearance than stated age. HEENT: Normocephalic, atraumatic. Pupils equal, round react to light and accommodation. Extraocular muscles intact. Anicteric sclerae. Moist mucous membranes. NECK: No JVD, no bruit. CARDIOVASCULAR: Regular. Positive S4. Normal S1 and S2. No S3. No murmurs or rubs. PULMONARY: Clear to auscultation bilaterally. No rales, rhonchi, or wheezing. ABDOMEN: Bowel sounds x4, soft. No rebound, guarding, tenderness. No organomegaly. EXTREMITIES: No clubbing, cyanosis or edema. +2 pedal pulses bilaterally. SKIN: Warm and dry. MUSCULOSKELETAL: Chest discomfort is not reproducible to palpation. TEST RESULTS: A 2D echocardiogram performed today was read as normal LV chamber size and wall thickness, normal LV systolic function, EF 60-65%, no segmental left ventricular wall motion abnormalities are noted, grade 2 diastolic dysfunction, mild aortic valve sclerosis without stenosis. A 12-lead EKG performed in the Emergency Department independently reviewed at this time shows normal sinus rhythm with significant first-degree AV block, measuring 304 milliseconds, normal axis, normal intervals, no active ischemia, no significant change compared to previous studies. Repeat EKG on 06/19/2017 shows no significant change. LABORATORY STUDIES OF SIGNIFICANCE: Initial CPK of 343. Troponin of 0.13. Followup troponin of 0.568. Total cholesterol of 131, LDL 40, HDL 45, triglycerides of 231. IMPRESSION: 1. Chest discomfort, suspicious for unstable angina. 2. History of coronary artery disease, status post PCI to the LAD in 2008. RECOMMENDATIONS: It was my pleasure to see Mr. Wong in consultation today. From a cardiac standpoint, I am concerned of the description of the discomfort, I do believe, he may be suffering from unstable angina. This is further compounded by his minimal troponin elevation. Luckily, there are no ischemic EKG changes. His echocardiogram shows no wall motion abnormalities and he is now pain free, so I do not see the need for emergent cardiac catheterization at this point, but I would like to see where his third set of enzymes are. If they remain stable or elevate, then we will plan on diagnostic cardiac catheterization in the a.m. Should they decrease, then we can consider stress testing instead, so at either to be maintained on his current aspirin, metoprolol, atorvastatin and heparin drip per protocol. His diet will be resumed now. He will be made n.p.o. after midnight.
--- NOTE | 2017-06-19 12:10 | Progress Note ---
Progress Note Date of Service June 19, 2017. Progress Note Troponin continues to trend upwards. Will cont heparin and proceed with cardiac cath in AM.
[2017-06-19 12:54] LABS: PTT PATIENT 74.1 SECONDS (21.0-31.0)
--- NOTE | 2017-06-19 16:04 | Progress Note ---
Internal Med Progress Note Date of Service: June 19, 2017. Provider Documentation: SUBJECTIVE: having chest pain for last 3 days after exertion at the end of the day and used to get resolved with resting but yesterday it was not resolving which prompted the patient to come to ER currently chest pain free no sob afebrile no cough no nausea OBJECTIVE: Vital Signs-as noted below Exam: General-alert and oriented. Not in distress ENT-Normal hearing Neck-no neck masses Lungs-cta b/l no wheezing mild bibasilar crackles Heart-s1 and s2 heard regular rate and rhythm no murmurs Abdomen-soft bowel sounds present non tender no distension Extremities-no edema no erythema Neuro-alert and awake 'moves extremities Lab data as noted below. ASSESSMENT & PLAN: Chest pain most likely unstable angina pain with exertion Troponin mildly elevated and mildly trending up EKG no acute ST changes D-dimer within normal limits echo ok on iv heparin on aspirin, atorvastatin, and metoprolol cardiology planning for cardiac cath in am continue to monitor HTN on Lopressor will monitor Dyslipidemia LDL at goal on atorvastatin DVT prophylaxis on heparin drip DISPOSITION to be determined Vital Signs: Date Time Temp Pulse Resp B/P (MAP) Pulse Ox O2 Delivery O2 Flow Rate FiO2 06/19/17 15:00 36.7 59 16 119/76 (90) 95 Room Air 06/19/17 12:00 94 Room Air 06/19/17 11:53 36.4 53 17 104/67 (79) 94 Room Air 06/19/17 08:00 93 Room Air 06/19/17 07:58 36.6 61 16 101/62 (75) 92 Room Air 06/19/17 04:05 Room Air 06/19/17 03:44 36.4 52 18 97/59 (72) 92 Room Air 06/19/17 01:00 36.5 59 16 95/59 Room Air 06/19/17 00:36 60 91 06/19/17 00:30 97/60 06/19/17 00:06 60 91 06/19/17 00:00 94/63 06/18/17 23:36 67 94 06/18/17 23:31 105/68 06/18/17 23:25 63 94/71 95 06/18/17 23:12 89/66 06/18/17 23:00 92/65 06/18/17 22:55 68 12 95 06/18/17 22:50 70 95 Room Air 06/18/17 22:30 96/61 06/18/17 22:21 101/59 06/18/17 22:20 62 17 93 06/18/17 22:15 115/60 06/18/17 22:00 64 19 105/67 93 Room Air 06/18/17 21:16 Room Air 06/18/17 21:10 Room Air 06/18/17 21:05 36.7 82 15 118/78 93 Room Air 06/18/17 21:01 78 Lab Results: Results Past 24 Hours Test 06/19/17 05:21 06/19/17 11:09 Range/Units Activated Partial Thromboplast Time 69.9 74.1 21.0-31.0 SECONDS Partial Thromboplastin Ratio 2.7 2.8 Sodium Level 141 136-145 mmol/L Potassium Level 3.9 3.5-5.1 mmol/L Chloride Level 110 98-107 mmol/L Carbon Dioxide Level 24 21-32 mmol/L Anion Gap 7.0 3-11 mmol/L Blood Urea Nitrogen 18 7-18 mg/dl Creatinine 1.02 0.60-1.40 mg/dl Est Creatinine Clear Calc Drug Dose 72.4 ml/min Estimated GFR () 84.7 Estimated GFR (Non- 73.1 BUN/Creatinine Ratio 17.7 10-20 Random Glucose 98 70-99 mg/dl Calcium Level 8.1 8.5-10.1 mg/dl Troponin I 0.568 0.668 0-0.045 ng/ml Hepatitis C Antibody Screen NEG NEG
[2017-06-19 19:10] LABS: PTT PATIENT 59.9 SECONDS (21.0-31.0)
[2017-06-19] MEDS: ATORVASTATIN 40 MG TAB PO SCH (20:07)
[2017-06-20] VITALS (18 sets, daily range): BP systolic 100–137; BP diastolic 60–86; PULSE 52–71; TEMP 36.5–36.7; O2SAT 94–98
[2017-06-20] MEDS: ASPIRIN 81 MG ECTAB PO SCH (07:43)
[2017-06-20] MEDS: METOPROLOL TARTRATE 25 MG TAB PO SCH ×2 (07:43→20:37)
[2017-06-20] MEDS ORDERED: MIDAZOLAM HCL 1 MG/ML 2ML VIAL ONE (08:09)
[2017-06-20] MEDS ORDERED: NiCARDipine HCL INJ 2.5 MG/ML 10 ML AMP ONE (08:09)
[2017-06-20] MEDS ORDERED: HEPARIN SOD (PORCINE) 1000 UNIT/ML 10 ML VIAL ONE (08:09)
[2017-06-20] MEDS ORDERED: FENTANYL CITRATE INJ 50 MCG/1 ML 2 ML VIAL ONE ×2 (08:09→08:52)
[2017-06-20] MEDS ORDERED: NITROGLYCERIN/D5W 100MCG/ML 20ML SYR ONE (08:10)
[2017-06-20] MEDS ORDERED: SODIUM CHLORIDE 0.9% 1000ML 250 ML IV PRN (09:17)
[2017-06-20] MEDS: SODIUM CHLORIDE 0.9% 1000ML 1,000 ML IV SCH ×2 (09:17→20:45)
[2017-06-20] MEDS ORDERED: SODIUM CHLORIDE 0.9% 1000ML 1,000 ML IV SCH ×2 (09:17→09:45)
--- NOTE | 2017-06-20 09:21 | Pre Sedation Assessment ---
Pre Sedation Assessment General Date of Sedation: June 20, 2017. Vital Signs Past 12 Hours Date Time Temp Pulse Resp B/P (MAP) Pulse Ox O2 Delivery O2 Flow Rate FiO2 06/20/17 07:10 36.5 59 18 135/80 (98) 97 Room Air 06/20/17 04:12 Room Air 06/20/17 03:35 36.6 58 18 121/77 (92) 94 Room Air 06/20/17 00:23 Room Air 06/19/17 23:30 36.5 57 18 132/75 (94) 96 Room Air Review Cardiovascular: regular rate, rhythm Lungs: lungs clear Pre-Sedation Airway Assessment Smoking Status: Never Smoker Hx of Sleep Apnea: No Hx of difficult intubation: No Short Thick Neck: No Thyro-mental Distance: > 3 Finger Breadths Oral Cavity: WNL Mallampati Classification: Class I ASA Classification: Class II NPO Status Date of Last Intake of Fluids: June 20, 2017 Time of Last Intake of Fluids: 00:12 Date of Last Intake of Solids: June 20, 2017 Time of Last Intake of Solids: 00:12 Procedure Planning Contraindications for Sedation: None Current Medications Reviewed: Yes Notes The planned sedation has been discussed with the patient. Informed Consent was obtained. I have identified the patient, determined the appropriateness of sedation and have assessed the patient immediately prior to the procedure. All medicine(s) and interventions are by my order.
--- NOTE | 2017-06-20 09:21 | Post Sedation Assessment ---
Post Sedation Assessment General Date of Sedation June 20, 2017. Vital Signs: Vital Signs Past 12 Hours Date Time Temp Pulse Resp B/P (MAP) Pulse Ox O2 Delivery O2 Flow Rate FiO2 06/20/17 07:10 36.5 59 18 135/80 (98) 97 Room Air 06/20/17 04:12 Room Air 06/20/17 03:35 36.6 58 18 121/77 (92) 94 Room Air 06/20/17 00:23 Room Air 06/19/17 23:30 36.5 57 18 132/75 (94) 96 Room Air Post Procedure Recovery Score Activity: (2) Moves 4 extremities * Respiration: (2) Deep breath/cough Circulation: (2) +/-20% PreAnes Value Consciousness: (2) Fully Awake Oxygen Saturation: (2) > 92% On Room Air Post Anesthesia Score: 10 Discharge Sedation Level of Care: Fast Track Phase II Post Sedation Plan On clinical assessment, the patient appears to have tolerated the sedation without complications. Patient is recovering as anticipated. Patient will continue to be monitored by nursing and may be discharged when sedation discharge criteria are met per below protocol. Upon Completions of procedure and additional 15 minutes continue every 5 minute vital signs and the P.A.R. score; then discharge to a Phase I or Fast Track to Phase II per the following guidelines: * Discharge Patient to appropriate Phase II area if PAR is 8 or greater or return to pre- procedure baseline. The post - procedure orders will be as directed. * If PAR score is less than 8 or not return to pre-procedure baseline then patient will follow Phase I monitoring till PAR is reached for Phase II. The Phase I may be done in procedure room or may call to secure a Phase I area. * If naloxone or flumazenil are used for reversal, hold in Phase I for an additional 60 -120 minutes before discharge to Phase II. Please call the Sedation Physician to re-evaluate and complete post-note for discharge to Phase II area. Do NOT discharge from procedure sedation or Phase 1 until post- sedation evaluation note is complete by procedure /sedation MD Sedation Discharge Instructions to be given to the patient at discharge to home.
--- NOTE | 2017-06-20 09:27 | Cardiac Catheterization ---
Procedure Note Procedure Date June 20, 2017. Pre-Procedure Diagnosis STEMI AUC Score 9 Post-Procedure Diagnosis Severe CAD Procedure(s) Performed Coronary Angiography Medical Sonographer Dr. Connors R D Internship(s) None Estimated Blood Loss None Medication(s) Heparin, Versed, Lidocaine 1% Summary of Findings See dictated report Hemodynamics Rest Ao: 82 Final Ao: 98/59 LV: Valve not crossed Recommendations PCI without planned CABG Specimens None Radiation Exposure (mGy) 1022 Contrast (mls) 75 Procedural Complication(s) None Disposition ICU ACC Data Cardiac Status Clinical evaluation leading to the procedure CAD Presntation: STEMI STEMI or Non-STEMI: Thrombolytics: No Anginal Classification: CCS III Heart Failure: No Cardiogenic Shock w/in 24Hrs: No Cardiac Arrest w/in 24Hrs: No Imaging studies past 6 months: Yes Stress studies past 6 months: No Coronary Anatomy Dominant: Right LAD (% Stenosis): Normal (Coronary stent is patent) Circumflex (% Stenosis): Normal L PDA (% Stenosis): Mid (70%), Distal (50%) Ramus (% Stenosis): Proximal (99) Diagnostic Status: Emergency Closure Device Percutaneous Entry Location: Radial Closure Device: Radial Band
[2017-06-20] MEDS ORDERED: DC ALL ANTICOAGULANTS ONE (09:30)
[2017-06-20] MEDS ORDERED: ATROPINE SULFATE 0.1 MG/ML 5ML SYR IV PRN (09:30)
[2017-06-20] MEDS ORDERED: ONDANSETRON INJ 2 MG/ML 2 ML VIAL IV PRN (09:30)
[2017-06-20] MEDS ORDERED: ACETAMINOPHEN 325 MG TAB PO PRN ×2 (09:30→09:45)
--- NOTE | 2017-06-20 09:37 | Procedure Note ---
Cardiac Cath Report Procedure: 1. Coronary History: This is a 72-year-old male patient 2006 at stents placed in the LAD. He was admitted with chest pain had small elevation in his cardiac troponins. He was scheduled to undergo urgent cardiac catheterization this morning however patient developed chest pain earlier this morning with evidence of inferior wall myocardial infarction. Procedure summary: After informed consent was obtained, patient was taken emergently for cardiac catheterization lab. Access was obtained retrograde right radial artery. Preformed 5 Spanish diagnostic catheters were utilized for the coronary angiograms. Following the procedure, the patient underwent stent placement and was admitted to the ICU. Coronary angiography: Selective injections of the left coronary artery revealed the left main trunk to be patent. Left circumflex artery gives off a large ramus branch which is subtotaled in its proximal segment with DALILA III flow. The remainder of the left circumflex artery. The LAD has evidence of previous coronary stents in proximal and mid segment. LAD is patent. Selective injections of the right coronary artery revealed it to be dominant. Right coronary artery has a 70% eccentric stenosis mid segment and a second 50% stenosis in its distal segment prior to the takeoff of the PDA. Summary: The previous stent site in the LAD is patent. The index artery is a large ramus of the left circumflex artery which has ulcerated subtotal stenosis in its proximal segment. There is also additional disease in the proximal and distal right coronary artery. Recommendations: The patient will undergo coronary intervention on at least the ramus from the left circumflex artery. Additional work on the right coronary artery consider after treatment of the index artery.
[2017-06-20] MEDS ORDERED: TICAGRELOR 90 MG TAB PO ONE ×2 (09:42)
[2017-06-20] MEDS ORDERED: EPTIFIBATIDE BOLUS / DRIP IV ONE (09:45)
--- NOTE | 2017-06-20 09:53 | [facility] Post Operative Brief Note ---
Preliminary Procedure Note Procedure Date June 20, 2017. 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 80% early-mid RCA Questionable transient R-PDA occlusion. Successful PCI of ostial/proximal ramus with single SOO. Successful PCI of early mid RCA with single SOO. Recommendations PCI without planned CABG Specimens None Anesthesia moderate Procedural Complication(s) None Disposition ICU
[2017-06-20] MEDS ORDERED: EPTIFIBATIDE INJ 75 MG PREMIXED IV SCH (10:15)
--- NOTE | 2017-06-20 11:45 | Cardiac Catheterization ---
Procedure Note Procedure Date June 20, 2017. 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 Access: 6Fr right radial artery Catheters: EBU 3.75 guide Findings: For full details of patient's coronary angiography please cath report dictated by Dr. Connors. Briefly, patient found to have multi-vessel disease including an acute subtotal occlusion of a large ramus and severe stenosis involving the early-mid RCA. Decision to proceed with PCI of Ramus and later RCA -- PCI -- Antithrombotic therapy: Heparin, Integrilin, Ticagrelor Procedure: LM cannulated with EBU 3.75 guide BMW wire passed across proximal Ramus lesion into distal vessel Ramus lesion predilated with 2.5 compliant balloon Dilated lesion stented with 3.0 x 15 Xience SOO Stent post-dilated with 3.0 noncompliant balloon IC vasodilators administered for spasm Post procedure DALILA 3 flow, stent well expanded with minimal residual stenosis. Limited flow in upper branch of downstream vessels with appearance suggestive of showered thrombus. Started on IV integrilin. Patient with persistent chest pain and inferior ST changes. Decision to proceed with PCI of RCA RCA cannulated with JR4 guide BMW passed across lesion into distal vessel. Patient noted to have diminished flow in R-PDA (previously open on diagnostic imaging) BMW wire placed into PDA, IC vasodilators administered and ostium dottered with compliant balloon. Early mid RCA lesion pre-dilated with 2.5 compliant balloon. Dilated lesion stented with 4.0 x 15 Xience SOO. Stent post-dilated with 4.0 NC balloon. Post procedure DALILA 3 flow, stent well expanded with minimal residual stenosis. DALILA 3 flow in R-PDA, PLB. Patient chest pain free and ST changes resolved. Arterial Closure: TR Band Summary: 1. Successful PCI of proximal Ramus with single drug-eluting stent (3.0 x 15 Xience). 2. Successful PCI of early-mid RCA with single drug-eluting stent (4.0 x 15 Xience). Recommendations: Return to ICU for continued monitoring Loaded with Ticagrelor 180mg in medical lab scientist Continue integrilin infusion for 8hrs Continue dual-antiplatelet therapy for at least 1 year Continue statin, and ASCVD risk factor modification per Dr. Connors Consult cardiac Rehab Hemodynamics Rest Ao: 82/59/76 Final Ao: 107/61/81 LV: -- Recommendations PCI without planned CABG Specimens None Radiation Exposure (mGy) 3843 Contrast (mls) 195 Fluids (cc crystalloids) 132 Drains None Anesthesia Moderate Procedural Complication(s) None Disposition ICU ACC Data Cardiac Status Clinical evaluation leading to the procedure CAD Presntation: Non STEMI Anginal Classification: CCS IV Heart Failure: No, NYHA Class: CCS I Cardiogenic Shock w/in 24Hrs: No Cardiac Arrest w/in 24Hrs: No Imaging studies past 6 months: Yes Stress studies past 6 months: No Diagnostic Physician's Name: Gonzalo Connors, DO Status: Urgent Closure Device Percutaneous Entry Location: Radial Closure Device: Radial Band Recommendations: PCI without planned CABG PCI Indication: PCI for high risk Non-STEMI Lesion Segment Name: Ramus Culprit Artery: Yes Stenosis Prior to Rx (%): 99 Chronic Total Occlusion: No IVUS: No Pre-Procedure DALILA Flow: 1 Previously Treated Lesion: No Lesion Complexity: Non-High/Non-C Lesion Length (mm): 12 Thrombus Present: Yes Bifurcation Lesion: No Guidewire Across Lesion: Yes Guidewire: Stenosis Post-Procedure (%): 0 Post-Procedure DALILA Flow: 3 Device(s) Deployed: Yes Lesion #2 Segment Name: early-mid RCA Culprit Artery: No Stenosis Prior to Rx (%): 80 Chronic Total Occlusion: No IVUS: No FFR: No Pre-Procedure DALILA Flow: 3 Previously Treated Lesion: No Lesion Complexity: Non-High/Non-C Lesion Length (mm): 12 Thrombus Present: No Bifurcation Lesion: No Guidewire Across Lesion: Yes Guidewire: Stenosis Post-Procedure (%): 0 Post-Procedure DALILA Flow: 3 Device(s) Deployed: Yes Intraprocedure Events Significant Dissection: No Perforation: No
--- NOTE | 2017-06-20 12:54 | Critical Care Consultation ---
Critical Care Consultation Date of Consultation: June 20, 2017. Attending Physician: Rich Blackmon MD Reason for Consultation: Active myocardial infarction History of Present Illness Collections Analyst: Dr. Sinha There is a 72-year-old male with a past medical history of CAD which required stenting of the LAD 9 years ago with 2 stents. Patient also has a past medical history of neurogenic bladder requiring straight cath at home for several years. Otherwise, the patient has no significant past medical history. 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 He lifts weights 4 times a week. He is unaware of any problems with hyperlipidemia. He has no past medical history of tobacco abuse or ethanol abuse. He recently traveled to [place] with his , daughter, granddaughter. He drove from [place] to his daughter's house in [place] last . He then traveled back to [place] from [place] on Tuesday. Since that time the patient has had ongoing shortness of breath and just fatigue and felt as though he was "played out" from all the travel. He denies any lower extremity edema there was a symmetrical. In discussion with his and daughter they stopped one time while traveling. He denies previous history of thromboembolic disease. He is unaware of any other medical history other than his CAD. This morning the patient had sudden near syncope with associated diaphoresis, lightheadedness, dizziness, disorientation. At the time he reported chest pain to his nurse rated 8/10. Nitroglycerin was given and the patient's systolic blood pressure dropped into the 60s and 70s. A code purple was called. I responded within 3 minutes and found the patient to be diaphoretic with a systolic blood pressure 74. He stated that his pain was improved to 2/10. He denied any shortness of breath. He did have some nausea but no vomiting. He had no incontinence of stool or urine at the time. Patient was transferred to room 109 pending word on cardiac custodial laborer. Dr. Connors medicine the intensive care unit and arrange for immediate transfer to the cardiac catheterization lab. Past Medical/Surgical History Medical Problems: (1) Chest pain (2) Complicated UTI (urinary tract infection) secondary to neurogenic bladder (3) Coronary artery disease (4) Essential (Primary) Hypertension (5) Hypercholesteremia (6) Pyelonephritis Surgical Problems: (1) PCI with 2 stents to the LAD 9 years ago Family History FH ischemic heart disease FH: coronary artery bypass surgery FH: diabetes mellitus Social History Smoking Status: Never Smoker Smokeless Tobacco Use: No Alcohol Use: none Drug Use: none Marital Status: Housing Status: lives with family Occupation Status: retired Allergies Coded Allergies: No Known Allergies (Verified , 09/10/16) Home Medications Scheduled Aspirin (Aspirin Ec), 81 MG PO DAILY Atorvastatin (Lipitor), 80 MG PO QPM Metoprolol Tartrate (Lopressor), 25 MG PO Q12 Scheduled PRN Nitroglycerin (Nitrostat), 0.4 MG UT UD PRN for Chest Pain Current Inpatient Medications Current Inpatient Medications Medications (Trade) Dose Ordered Sig/Leatha Route Start Time Stop Time Status Last Admin Dose Admin Nitroglycerin (Nitrostat Tab) 0.4 mg UD PRN SL 06/18/17 23:45 07/18/17 23:44 Aspirin (Ecotrin Tab) 81 mg DAILY PO 06/19/17 09:00 07/19/17 08:59 06/20/17 07:43 81 MG Atorvastatin Calcium (Lipitor Tab) 80 mg QPM PO 06/19/17 21:00 07/19/17 20:59 06/19/17 20:07 80 MG Metoprolol Tartrate (Lopressor Tab) 25 mg Q12 PO 06/19/17 09:00 07/19/17 08:59 06/20/17 07:43 25 MG Sodium Chloride 1,000 ml @ 100 mls/hr Q10H IV 06/20/17 09:17 07/20/17 09:16 Acetaminophen (Tylenol Tab) 650 mg Q4H PRN PO 06/20/17 09:30 07/20/17 09:29 Sodium Chloride 250 ml @ 999 mls/hr Q16M PRN IV 06/20/17 09:17 07/20/17 09:16 Atropine Sulfate (Atropine Sulfate 0.1mg/ml Inj) 0.6 mg PRN PRN IV 06/20/17 09:30 07/20/17 09:29 Ondansetron HCl (Zofran Inj) 4 mg Q6H PRN IV 06/20/17 09:30 07/20/17 09:29 Ticagrelor (Brilinta Tab) 90 mg BID PO 06/20/17 21:00 07/20/17 20:59 Eptifibatide 100 ml @ 14 mls/hr Q7H9M IV 06/20/17 10:15 06/20/17 17:30 06/20/17 10:22 14 MLS/HR Miscellaneous (Stop Order) 1 ea TODAY@1730 ONCE N/A 06/20/17 17:30 06/20/17 17:31 Review of Systems A total of 12 systems was reviewed and is negative other than as listed above in the HPI Physical Exam Date Time Temp Pulse Resp B/P (MAP) Pulse Ox O2 Delivery O2 Flow Rate FiO2 06/20/17 12:00 96 Room Air 06/20/17 11:45 36.7 62 16 133/86 (102) 97 Room Air 06/20/17 11:15 52 12 125/70 (88) 98 Room Air 06/20/17 10:45 54 12 107/67 (80) 96 Room Air 06/20/17 10:30 71 16 106/65 (79) 96 Room Air 06/20/17 10:15 53 18 109/70 (83) 97 Room Air 06/20/17 10:00 97 Room Air 06/20/17 10:00 36.5 67 18 100/60 (73) 97 Room Air 06/20/17 09:55 62 16 88/63 (71) 95 Room Air 06/20/17 09:50 65 18 91/64 (73) 95 Room Air 06/20/17 09:45 57 19 93/62 (72) 98 Room Air 06/20/17 07:10 36.5 59 18 135/80 (98) 97 Room Air 06/20/17 04:12 Room Air 06/20/17 03:35 36.6 58 18 121/77 (92) 94 Room Air 06/20/17 00:23 Room Air 06/19/17 23:30 36.5 57 18 132/75 (94) 96 Room Air 06/19/17 20:10 Room Air 06/19/17 19:13 37.0 58 18 118/74 (89) 93 Room Air 06/19/17 16:00 Room Air 06/19/17 15:00 36.7 59 16 119/76 (90) 95 Room Air GENERAL : Positive for acute distress with diaphoresis and reported chest pain EYES: No icterus, gaze conjugate. Pupils are equal round and reactive to light NOSE: No evidence of epistaxis. Nasal cannula in place MOUTH: No lesions or candidiasis. Mucosa is moist NECK: Supple. No JVD and no appreciation of carotid bruit or stridor LUNGS: CTA B/L, no wheezes, rales or rhonchi HEART: Regular, rate controlled ABDOMEN: Soft, NT, ND, BS Present EXTREMITIES: No LE edema, pedal pulses intact NEURO: A&OX3 Laboratory Results Last 24 Hours Test 06/19/17 18:10 Activated Partial Thromboplast Time 59.9 SECONDS Partial Thromboplastin Ratio 2.3 Diagnostic Results CHEST ONE VIEW PORTABLE HISTORY: 72 years-old Male Chest Pain acute atypical chest pain COMPARISON: Chest radiograph 09/10/2016 TECHNIQUE: Portable AP view of the chest FINDINGS: Cardiomediastinal and hilar silhouettes are within normal limits. No pneumothorax, pleural effusion or overt pulmonary edema. Linear subsegmental left basilar opacities compatible with atelectasis. Degenerative changes of the shoulders and spine. IMPRESSION: No acute process. Electronically signed by: Vimal James M.D. 06/18/2017 9:08 PM Assessment & Plan This is a 72-year-old male brought to the intensive care unit for active NY with ST changes. Patient had bump in the troponin and was admitted over the weekend. He was seen by cardiology who elected to have cardiac catheterization completed on Tuesday. This morning a code purple was called and patient was found to be in acute distress with hypotension with a systolic pressure of 74. He received a bolus of normal saline which resulted in an increase in systolic pressure up to 92. He continued to have chest pain in spite of nitroglycerin. He was transferred to room 109 emergently and immediately taken to the cardiac catheterization lab by Dr. Connors. Patient was found to have near occlusion of the RCA as well as the ramus receiving stents to both vessels. Patient was then transferred back to the intensive care unit in stable condition. CARDIOVASCULAR * Previous history of CAD with PCI and stenting to the LAD 9 years ago * Acute NY with PCI and stenting of the RCA and ramus with drug-eluting stents today with Dr. Brink * Continue Brilinta and Integrilin per Dr. Brink * Hemodynamically stable post PCI * Continue to monitor in the intensive care unit * Further cardiac monitoring and management per cardiology NEURO * CAM negative * No focal findings on physical exam PULMONARY * No prior history of tobacco abuse * No hypoxia * Chest x-ray clear * Monitor clinically IV ACCESS * Peripheral access * No indication for central line access or arterial line access at this time RENAL * BUN 18, creatinine 1.02 * No history of renal disease * Continue to monitor ELECTROLYTES * Potassium 3.9, sodium 141, calcium 8.1 * Follow serial labs ENDOCRINE * No history of diabetes mellitus or hypothyroidism * Random glucose is 98 ID * No fever or leukocytosis * No recent illness * Monitor clinically GI * No indication for GI prophylaxis at this time * History of neurogenic bladder followed by Dr. Kaminski at [facility] * Patient straight caths several times a day * Anderson catheter ordered pending cardiac catheterization DVT PROPHYLAXIS * No chemical prophylaxis other than as prescribed by cardiology with Brilinta and Integrilin * Teds * Check lower extremity ultrasound due to recent travel to rule out thromboembolic disease to lower extremities CCT: 60 minutes including response to code purple Thank you for including us in the care of this patient. Please refer to Dr. Sinha's addendum for further recommendations I have personally evaluated and examined this patient. I agree with assessment and plan of Kendra Rizvi PA-C. Patient initially seen up on the floor with acute right-sided myocardial infarction, avoided additional nitrates, after PCI intervention patient significantly improved.
--- NOTE | 2017-06-20 16:39 | Progress Note ---
Internal Med Progress Note Date of Service: June 20, 2017. Provider Documentation: SUBJECTIVE: patient complained of chest pains in the morning and later became hypotensive and almost passed out fluid bolus was given and his BP improved and felt better code edgar was called during the episode Patient was taken to general production laborer and s/p stents to ramus and RCA Currently resting comfortably in the ICU Hemodynamics stable says has some chest pain and thinks it from morning procedure no sob afebrile OBJECTIVE: Vital Signs-as noted below Exam: General-alert and oriented. Not in distress ENT-Normal hearing Neck-no neck masses Lungs-cta b/l no wheezing no crackles Heart-s1 and s2 heard regular rate and rhythm no murmurs Abdomen-soft bowel sounds present non tender no distension Extremities-no edema right wrist cath site has hematoma. No bleeding from the site seen Neuro-alert and awake 'moves extremities Lab data as noted below. ASSESSMENT & PLAN: 72Y presented with chest pain after exertion and relieved with rest. Mild elevation of troponin. Was started on iv heparin for unstable angina and planned for Cardiac cath today. Today morning complained of chest pain. received nitro. Then almost passed out BP dropped. Code edgar was called. Improved with fluid bolus. S/p Cardiac Cath and s/p SOO to ramus and RCA. Currently stable in ICU. Acute GA presented with unstable angina and was placed on iv heparin and planned for cardiac cath today mild elevation of troponin ekg on presentation ok Complained of chest pain and had an episode of hypotension and near syncope today morning after he got nitro- which improved with fluid bolus s/p emergent cardiac cath and s/p SOO to ramus and RCA post cath management as per cardiology on Brilinta, aspirin ,Lopressor and statin close monitor in ICU for today HTN on Lopressor will monitor Dyslipidemia LDL at goal on atorvastatin DVT prophylaxis scds DISPOSITION monitor in Icu Vital Signs: Date Time Temp Pulse Resp B/P (MAP) Pulse Ox O2 Delivery O2 Flow Rate FiO2 06/20/17 16:00 Room Air 06/20/17 15:45 36.5 68 12 137/82 (100) 96 Room Air 06/20/17 14:45 65 14 122/76 (91) 97 Room Air 06/20/17 13:45 64 12 126/65 (85) 96 Room Air 06/20/17 12:45 61 12 129/79 (96) 96 Room Air 06/20/17 12:00 96 Room Air 06/20/17 11:45 36.7 62 16 133/86 (102) 97 Room Air 06/20/17 11:15 52 12 125/70 (88) 98 Room Air 06/20/17 10:45 54 12 107/67 (80) 96 Room Air 06/20/17 10:30 71 16 106/65 (79) 96 Room Air 06/20/17 10:15 53 18 109/70 (83) 97 Room Air 06/20/17 10:00 97 Room Air 06/20/17 10:00 36.5 67 18 100/60 (73) 97 Room Air 06/20/17 09:55 62 16 88/63 (71) 95 Room Air 06/20/17 09:50 65 18 91/64 (73) 95 Room Air 06/20/17 09:45 57 19 93/62 (72) 98 Room Air 06/20/17 07:10 36.5 59 18 135/80 (98) 97 Room Air 06/20/17 04:12 Room Air 06/20/17 03:35 36.6 58 18 121/77 (92) 94 Room Air 06/20/17 00:23 Room Air 06/19/17 23:30 36.5 57 18 132/75 (94) 96 Room Air 06/19/17 20:10 Room Air 06/19/17 19:13 37.0 58 18 118/74 (89) 93 Room Air Lab Results: Results Past 24 Hours Test 06/20/17 08:45 06/20/17 09:32 Range/Units Kaolin Activated Coagulation Time 103 334 94-140 SECONDS Microbiology Results 06/20/17 MRSA DNA Surveillance Screen - Final, Complete Specimen Negative for MRSA by DNA Probe
[2017-06-20] MEDS ORDERED: Integrelin infusion --> STOP ORDER ONE (17:30)
[2017-06-20] MEDS: TICAGRELOR 90 MG TAB PO SCH (20:36)
[2017-06-20] MEDS: ATORVASTATIN 40 MG TAB PO SCH (20:37)
--- NOTE | 2017-06-20 21:44 | DIAGNOSTIC IMAGING REPORT ---
VENOUS DOPPLER LWR EXT BILA CLINICAL HISTORY: 72 years-old Male presenting with Recent travel. R/O LE DVT. TECHNIQUE: Real-time grayscale and color and spectral Doppler ultrasound imaging of the veins of the bilateral lower extremities was performed. Compression and augmentation were also utilized. COMPARISON: None. FINDINGS: Right: Common femoral vein: Patent. Greater saphenous vein: Patent. Deep femoral vein: Patent. Femoral vein: Patent. Popliteal vein: Patent. Calf veins: Patent. Left: Common femoral vein: Patent. Greater saphenous vein: Patent. Deep femoral vein: Patent. Femoral vein: Patent. Popliteal vein: Patent. Calf veins: Patent. Other: None. IMPRESSION: No evidence of deep venous thrombosis. Electronically signed by: Ike Simon M.D. 06/20/2017 9:42 PM Dictated Date/Time: 06/20/2017 9:42 PM
[2017-06-21] VITALS (13 sets, daily range): BP systolic 73–141; BP diastolic 48–87; PULSE 62–90; TEMP 36.5–36.8; O2SAT 93–96
[2017-06-21] MEDS: SODIUM CHLORIDE 0.9% 1000ML 1,000 ML IV SCH (06:13)
[2017-06-21 07:03] LABS: BASO % 0.2 %; BASO ABS # 0.02 K/uL (0-0.2); EOS % 1.4 %; EOS ABS # 0.13 K/uL (0-0.5); HEMATOCRIT 43.5 % (42-52); HEMOGLOBIN 15.7 g/dL (14.0-18.0); IG# 0.01 K/uL (0.00-0.02); LYMPH % 16.6 %; MEAN CELL VOLUME 91.2 fL (80-100); MEAN CORPUSCULAR HEMOGLOBIN 32.9 pg (25-34); MONO % 15.8 %; MONO ABS # 1.43 K/uL (0.11-0.59); NEUT % 65.9 %; NEUT ABS # 5.96 K/uL (1.4-6.5); PLATELET COUNT 173 K/uL (130-400); RED CELL DISTRIBUTION WIDTH CV 12.5 % (11.5-14.5); RED CELL DISTRIBUTION WIDTH SD 41.9 fL (36.4-46.3); WHITE BLOOD COUNT 9.05 K/uL (4.8-10.8)
[2017-06-21 07:05] LABS: MEAN CORPUSCULAR HGB CONC 36.1 g/dl (32-36)
[2017-06-21 07:22] LABS: CALCIUM 7.9 mg/dl (8.5-10.1); CREATININE 1.11 mg/dl (0.60-1.40); POTASSIUM 3.9 mmol/L (3.5-5.1)
--- NOTE | 2017-06-21 08:36 | Cardiology Follow-Up ---
Subjective Subjective Date of Service: June 21, 2017. Additional Details: The patient had a uneventful and pain-free night. Unfortunately, this morning he was sitting in a chair during an IV start. The patient became lightheaded and had to be placed into his bed. According the patient this is not an uncommon occurrence. He states every time he has blood drawn or any type of needlestick he becomes lightheaded and near syncopal. He has no current complaints. Problem List Medical Problems: (1) 1st degree AV block Status: Acute (2) Contusion of finger, left Status: Acute (3) Coronary artery disease Status: Chronic (4) Essential (Primary) Hypertension Status: Chronic (5) Hypercholesteremia Status: Chronic (6) Low back pain Status: Acute (7) Mid back pain Status: Acute (8) NSTEMI (non-ST elevated myocardial infarction) Status: Acute (9) UTI (urinary tract infection) Status: Acute Objective Vital Signs Last Vital Signs Documentation Date Time Temp Pulse Resp B/P (MAP) Pulse Ox O2 Delivery O2 Flow Rate FiO2 06/21/17 08:00 95 Room Air 06/21/17 07:49 36.7 71 20 116/81 (93) Physical Exam: General Appearance: no apparent distress ENT: normal ENT inspection Neck: supple, thyroid normal, no JVD Respiratory/Chest: lungs clear, normal breath sounds Cardiovascular: regular rate, rhythm, no gallop, no JVD, no murmur Abdomen: normal bowel sounds, non tender, soft, no organomegaly Extremities: normal inspection, no pedal edema, no calf tenderness Neurologic/Psychiatric: no motor/sensory deficits, normal mood/affect, oriented x 3 Skin: normal color, warm/dry, no rash Lymphatic: no adenopathy Assessment and Plan Impression: 1. Acute coronary syndrome 2. Status post drug-eluting stents within the ramus and right coronary arteries. 3. Previous stents within the LAD 2006 4. Vasovagal event during an IV stick this morning Recommendations: Clinically the patient is stable. I think we can stop his IV fluids and DC his Anderson catheter. He should be ambulated today. He has not had a follow-up troponin after the events of yesterday and to see where his troponins have peaked I will order one today. Otherwise he is doing well and I think we should ambulate him today and possibly discharge either later today or early tomorrow morning. Medications: Current Inpatient Medications Medications (Trade) Dose Ordered Sig/Leatha Route Start Time Stop Time Status Last Admin Dose Admin Nitroglycerin (Nitrostat Tab) 0.4 mg UD PRN SL 06/18/17 23:45 07/18/17 23:44 Aspirin (Ecotrin Tab) 81 mg DAILY PO 06/19/17 09:00 07/19/17 08:59 06/20/17 07:43 81 MG Atorvastatin Calcium (Lipitor Tab) 80 mg QPM PO 06/19/17 21:00 07/19/17 20:59 06/20/17 20:37 80 MG Metoprolol Tartrate (Lopressor Tab) 25 mg Q12 PO 06/19/17 09:00 07/19/17 08:59 06/20/17 20:37 25 MG Acetaminophen (Tylenol Tab) 650 mg Q4H PRN PO 06/20/17 09:30 07/20/17 09:29 Sodium Chloride 250 ml @ 999 mls/hr Q16M PRN IV 06/20/17 09:17 07/20/17 09:16 Atropine Sulfate (Atropine Sulfate 0.1mg/ml Inj) 0.6 mg PRN PRN IV 06/20/17 09:30 07/20/17 09:29 Ondansetron HCl (Zofran Inj) 4 mg Q6H PRN IV 06/20/17 09:30 07/20/17 09:29 Ticagrelor (Brilinta Tab) 90 mg BID PO 06/20/17 21:00 07/20/17 20:59 06/20/17 20:36 90 MG Lab Results: Last 24 Hours Test 06/20/17 08:45 06/20/17 09:32 06/21/17 00:11 06/21/17 06:53 Kaolin Activated Coagulation Time 103 SECONDS 334 SECONDS Bedside Glucose 88 mg/dl White Blood Count 9.05 K/uL Red Blood Count 4.77 M/uL Hemoglobin 15.7 g/dL Hematocrit 43.5 % Mean Corpuscular Volume 91.2 fL Mean Corpuscular Hemoglobin 32.9 pg Mean Corpuscular Hemoglobin Concent 36.1 g/dl Platelet Count 173 K/uL Mean Platelet Volume 9.0 fL Neutrophils (%) (Auto) 65.9 % Lymphocytes (%) (Auto) 16.6 % Monocytes (%) (Auto) 15.8 % Eosinophils (%) (Auto) 1.4 % Basophils (%) (Auto) 0.2 % Neutrophils # (Auto) 5.96 K/uL Lymphocytes # (Auto) 1.50 K/uL Monocytes # (Auto) 1.43 K/uL Eosinophils # (Auto) 0.13 K/uL Basophils # (Auto) 0.02 K/uL RDW Standard Deviation 41.9 fL RDW Coefficient of Variation 12.5 % Immature Granulocyte % (Auto) 0.1 % Immature Granulocyte # (Auto) 0.01 K/uL Sodium Level 140 mmol/L Potassium Level 3.9 mmol/L Chloride Level 111 mmol/L Carbon Dioxide Level 23 mmol/L Anion Gap 6.0 mmol/L Blood Urea Nitrogen 9 mg/dl Creatinine 1.11 mg/dl Est Creatinine Clear Calc Drug Dose 66.7 ml/min Estimated GFR () 76.5 Estimated GFR (Non- 66.0 BUN/Creatinine Ratio 8.4 Random Glucose 96 mg/dl Calcium Level 7.9 mg/dl Test 06/21/17 08:26
[2017-06-21] MEDS: ASPIRIN 81 MG ECTAB PO SCH (09:13)
[2017-06-21] MEDS: TICAGRELOR 90 MG TAB PO SCH (09:13)
[2017-06-21] MEDS: METOPROLOL TARTRATE 25 MG TAB PO SCH (09:14)
--- NOTE | 2017-06-21 16:07 | Discharge Instructions ---
Discharge Instructions Date of Service June 21, 2017. Admission Reason for Admission: Chest Pain Discharge Discharge Diagnosis / Problem: NSTEMI s/p stents Discharge Goals Goal(s): Improve disease control, Prevent Disease Progression Activity Recommendations Activity Limitations: per Instructions/Follow-up section . Instructions / Follow-Up Instructions / Follow-Up Please take all medications as instructed on discharge list. You have a follow-up appointment with Dr. Negro Michelle on 06/23 at 12: 45 PM for follow-up of this hospitalization. Please bring all paperwork from discharge with you to this appointment. You have a follow-up appointment with Dr. Gonzalo Connors at the [facility] Cardiology clinic at [facility] on Tuesday, 06/28 at 2:15 PM. It was a pleasure taking care of you! Call if you have any questions or problems. You can reach a [facility] hospitalist on duty at [facility] 24 hours a day by calling [phone]. Take care of yourself. Lucille Gordon DO [facility] Hospitalist Current Hospital Diet Patient's current hospital diet: AHA Diet (Heart Healthy) Discharge Diet Recommended Diet: AHA Diet (Heart Healthy) Procedures Procedures Performed: LHC x 2 with subsequent SOO x 2 Pending Studies Studies pending at discharge: no Laboratory Results Lipid Panel Test 06/18/17 00:00 Range/Units Triglycerides Level 231 H 0-150 mg/dl Cholesterol Level 131 0-200 mg/dl HDL Cholesterol 45 mg/dl Cholesterol/HDL Ratio 2.9 LDL Cholesterol, Calculated 40 mg/dl Medical Emergencies . Who to Call and When: Medical Emergencies: If at any time you feel your situation is an emergency, please call 911 immediately. . Non-Emergent Contact Non-Emergency issues call your: Primary Care Provider, Slab Polisher . . "Provider Documentation" section prepared by Lucille Gordon. .
[2017-06-21] MEDS ORDERED: BRL90 PO (16:08)
--- NOTE | 2017-06-21 16:10 | Discharge Summary ---
Discharge Summary Date of Service June 21, 2017. Discharge Summary Admission Date: June 18, 2017 at 23:47 Discharge Date: June 21, 2017 Discharge Disposition: Home Principal Diagnosis: NSTEMI s/p LHC x 2 with two SOO placed. Procedures: Left heart cath x 2 Vaccinations: None. Consultations: Cardio-Dr. Gonzalo Connors, Dr. Chaparro Brink ICU-Dr. Nate Sinha. Pending Studies/Follow-Up: see instructions below. Medication Reconciliation New Medications: Ticagrelor (Brilinta) 90 Mg Tab 90 MG PO BID for 30 Days, #60 TAB 3 Refills Continued Medications: Aspirin (Aspirin Ec) 81 Mg Tab 81 MG PO DAILY Atorvastatin (Lipitor) 80 Mg Tab 80 MG PO QPM, TAB Metoprolol Tartrate (Lopressor) 25 Mg Tab 25 MG PO Q12, TAB Nitroglycerin (Nitrostat) 0.4 Mg Sub 0.4 MG UT UD PRN for Chest Pain, BTL PLACE ONE TABLET UNDER THE TONGUE EVERY 5 MINUTES FOR UP TO 3 DOSES IF NEEDED FOR CHEST. Admission Information HPI (per Admitting provider): 72 years old male with past medical history of CAD, dyslipidemia, hypertension, reflux esophagitis present to the ER with chief complaint of chest pain. Patient said he had 3 episodes of chest pain in the past 3 days (, Tuesday, and Tuesday) that occurred around 8 PM in the past 3 nights. Patient said chest pain occur while at rest. Described the pain located in the substernal area, pressure-like, nonradiating. Patient said the first 2 chest pain resolved after a few minutes and the next day he feels fine. He said last night chest pain did not resolve. He said that he received aspirin and sublingual nitro by EMS that helped with the chest pain. As per , patient has been doing a lot of lifting in the past weeks. He recently came from a recent car trip from [place] and [place]. Patient said that he had a W[place] in 2008 and said that this chest pain is different from the one back in 2008 because the one in 2008 was sharp and very intense. Patient said that he is very active. He said that he feels tired and attributed that to the recent trip. currently patient said that he feels fine and chest pain resolved . In the ER troponin mildly elevated. denies any diaphoreses, palpitation, shortness of breath, dizziness, and fever. Physical Exam (per Admitting): General Appearance: WD/WN, no apparent distress Head: normocephalic, atraumatic Eyes: PERRL, EOMI ENT: hearing grossly normal Neck: no JVD, trachea midline Respiratory/Chest: normal breath sounds, no respiratory distress, no accessory muscle use Cardiovascular: regular rate, rhythm, no JVD, no murmur Abdomen/GI: normal bowel sounds, non tender, soft Back: no CVA tenderness Extremities/Musculoskelatal: no calf tenderness Neurologic/Psych: no motor/sensory deficits, alert, normal mood/affect, oriented x 3 Skin: warm/dry, no rash Hospital Course 72Y presented with chest pain after exertion and relieved with rest. Mild elevation of troponin. Was started on iv heparin for unstable angina and planned for Cardiac cath today. Today morning complained of chest pain. received nitro. Then almost passed out BP dropped. Code purple was called. Improved with fluid bolus. S/p Cardiac Cath and s/p SOO to ramus and RCA. Currently stable in ICU. Acute W[place] presented with unstable angina and was placed on iv heparin and planned for cardiac cath today mild elevation of troponin ekg on presentation ok Complained of chest pain and had an episode of hypotension and near syncope today morning after he got nitro- which improved with fluid bolus s/p emergent cardiac cath and s/p SOO to ramus and RCA post cath management as per cardiology on Brilinta, aspirin ,Lopressor and statin close monitor in ICU for today HTN on Lopressor will monitor Dyslipidemia LDL at goal on atorvastatin DVT prophylaxis scds DISPOSITION monitor in Icu Total time spent on discharge = This includes examination of the patient, discharge planning, medication reconciliation, and communication with other providers. Discharge Instructions [facility] [address] [place] [address] Discharge Medical Patient Name: Lokesh Wong Unit Number: [id number] Date of : 1945 Patient Status: Admitted Inpatient Attending Doctor: Lucille Gordon DO DI: Medical v5 Discharge Instructions Date of Service June 21, 2017. Admission Reason for Admission: Chest Pain Discharge Discharge Diagnosis / Problem: NSTEMI s/p stents Discharge Goals Goal(s): Improve disease control, Prevent Disease Progression Activity Recommendations Activity Limitations: per Instructions/Follow-up section . Instructions / Follow-Up Instructions / Follow-Up Please take all medications as instructed on discharge list. You have a follow-up appointment with Dr. Negro Michelle on 06/23 at 12: 45 PM for follow-up of this hospitalization. Please bring all paperwork from discharge with you to this appointment. You have a follow-up appointment with Dr. Gonzalo Connors at the [facility] Cardiology clinic at [facility] on Tuesday, 06/28 at 2:15 PM. It was a pleasure taking care of you! Call if you have any questions or problems. You can reach a [facility] hospitalist on duty at [facility] 24 hours a day by calling [phone]. Take care of yourself. Lucille Gordon DO [facility] Hospitalist Current Hospital Diet Patient's current hospital diet: AHA Diet (Heart Healthy) Discharge Diet Recommended Diet: AHA Diet (Heart Healthy) Procedures Procedures Performed: LHC x 2 with subsequent SOO x 2 Pending Studies Studies pending at discharge: no Laboratory Results Lipid Panel Test 06/18/17 00:00 Range/Units Triglycerides Level 231 H 0-150 mg/dl Cholesterol Level 131 0-200 mg/dl HDL Cholesterol 45 mg/dl Cholesterol/HDL Ratio 2.9 LDL Cholesterol, Calculated 40 mg/dl Medical Emergencies . Who to Call and When: Medical Emergencies: If at any time you feel your situation is an emergency, please call 911 immediately. . Non-Emergent Contact Non-Emergency issues call your: Primary Care Provider, Insurance Sales Manager . . "Provider Documentation" section prepared by Lucille Gordon. . Additional Copies To Negro Michelle M.D.
[2017-06-21] MEDS ORDERED: TICAGRELOR 90 MG TAB PO SCH (16:45)
== END 2017-06-21 17:18 | disposition home or self-care (01) | DRG 247 ==
LOC: EDBD 20:50 → C.EDB 20:51 → C.2T 23:47 → ENRESERV 06-19 → CANRESERV 06-19 → ENRESERV 06-19 00:53 → C.MSICU 06-20 08:08
PROVIDERS: ADMIT Internal Medicine; ATTEND Hospitalist
PROC: 3E033PZ Introduction of Platelet Inhibitor into Peripheral Vein, Percutaneous Approach (ICD-10-PCS; 2017-06-20)
PROC: 027135Z Dilation of Coronary Artery, Two Arteries with Two Drug-eluting Intraluminal Devices, Percutaneous Approach (ICD-10-PCS; 2017-06-20)
PROC: B2111ZZ Fluoroscopy of Multiple Coronary Arteries using Low Osmolar Contrast (ICD-10-PCS; 2017-06-20)
PROC: 4A023N7 Measurement of Cardiac Sampling and Pressure, Left Heart, Percutaneous Approach (ICD-10-PCS; 2017-06-20)
PROC: B2111ZZ Fluoroscopy of Multiple Coronary Arteries using Low Osmolar Contrast (ICD-10-PCS; principal; 2017-06-20 08:09)
DX: I21.4 Non-ST elevation (NSTEMI) myocardial infarction (principal); E78.5 Hyperlipidemia, unspecified; I10 Essential (primary) hypertension; Z83.3 Family history of diabetes mellitus; I44.0 Atrioventricular block, first degree; K21.0 Gastro-esophageal reflux disease with esophagitis; Z95.5 Presence of coronary angioplasty implant and graft; Z82.49 Family history of ischemic heart disease and other diseases of the circulatory system; Z87.891 Personal history of nicotine dependence; I25.110 Atherosclerotic heart disease of native coronary artery with unstable angina pectoris; Z95.1 Presence of aortocoronary bypass graft

== ENCOUNTER 2018-11-16 10:36 | Inpatient (IN) ==
--- OUTSIDE RECORDS SUMMARY | 2018-11-16 10:39 | External Medical Summary | Continuity of Care Document ---
:1945 Author Name Margarita Quintero Address Unavailable Unavailable , Care Team Providers Name Role Phone [place] Quintero Unavailable [email or web address] [email or web address] PEREZ Unavailable Unavailable Problems Asthma (493.90) (J45.909) Retention of urine (788.20) (R33.9) Allergies and Adverse Reactions No Known Drug Allergies (Allergy) Medications Clopidogrel Bisulfate 75 MG Oral Tablet; TAKE 1 TABLET DAILY . Refills: 0 Metoprolol Tartrate 25 MG Oral Tablet; TAKE 1 TABLET TWICE D AILY. Start: 17-Dec-2011 Refills: 0 Simvastatin 80 MG Oral Tablet; TAKE 1 TABLET DAILY. Start: 17-Dec-2011 Refills: 0 Aspirin 81 MG TABS; TAKE 1 TABLET DAILY. Start: 17-Dec-2011 Refills: 0 Procedures Procedures not documented Immunizations Immunizations not documented Family History Unknown Family Member Family history of Heart Disease (V17.49) Status: Active Comments: Family History Social History - Smoking Status Never smoker Plan of Treatment Planned Observations Planned Goals not documented Results No Known Results Results not documented
[2018-11-16] MEDS ORDERED: ASPIRIN CHEW 324 MG PO STA (10:50)
[2018-11-16] MEDS ORDERED: GI COCKTAIL ED USE PO ONE (10:51)
[2018-11-16] MEDS ORDERED: PANTOprazole 40 MG TAB PO STA (10:51)
[2018-11-16 11:05] LABS: Basophils # (auto) 0.02 K/uL (0-0.2); Basophils % (auto) 0.2 %; Eosinophils # (auto) 0.37 K/uL (0-0.5); Eosinophils % (auto) 4.5 %; Hematocrit (blood only) 46.8 % (42-52); Hemoglobin 17.3 g/dL (14.0-18.0); Lymphocytes # (auto) 1.95 K/uL (1.2-3.4); Lymphocytes % (auto) 23.7 %; Mean Corpuscular Hemoglobin 33.8 pg (25-34); Mean Corpuscular Volume 91.4 fL (80-100); Mean Platelet Volume 8.9 fL (7.4-10.4); Monocytes # (auto) 1.13 K/uL (0.11-0.59); Monocytes % (auto) 13.7 %; Neutrophils # (auto) 4.75 K/uL (1.4-6.5); Neutrophils % (auto) 57.9 %; Platelet Count 207 K/uL (130-400); RDW Coefficient of Variation 12.6 % (11.5-14.5); RDW Standard Deviation 42.3 fL (36.4-46.3); Red Blood Count 5.12 M/uL (4.7-6.1); White Blood Count 8.22 K/uL (4.8-10.8)
--- NOTE | 2018-11-16 11:06 | XRay Report ---
XR chest 1V portable CLINICAL HISTORY: 73 years-old Male presenting with Chest Pain. TECHNIQUE: Portable upright AP view of the chest was obtained. COMPARISON: 06/18/2017. FINDINGS: Atherosclerosis of the aortic arch. Cardiac silhouette normal in size. Minimal left basilar opacities , which are chronic. No pleural effusion or pneumothorax. Osseous structures normal. Upper abdomen no rmal. IMPRESSION: 1. No acute cardiopulmonary disease. Electronically signed by: Ike Simon M.D. 11/16/2018 11:05 AM
[2018-11-16 11:17] LABS: INR 1.1 (0.9-1.1); Partial Thromboplastin Ratio 0.9; Partial Thromboplastin Time 25.5 Seconds (21.0-31.0); Prothrombin Time 11.1 Seconds (9.0-12.0)
[2018-11-16 11:33] LABS: BUN Creatinine Ratio 15.3 (10-20); Calcium 9.3 mg/dl (8.5-10.1); Creatinine Clr Calc Pharmacy 60.4 ml/min; Est GFR (African American) 69.1; Est GFR (Non-African American) 59.6; Potassium 4.4 mmol/L (3.5-5.1)
[2018-11-16 11:48] LABS: Albumin Globulin Ratio 1.2 (0.9-2); Bilirubin,Total 0.7 mg/dl (0.2-1); Globulin 3.3 gm/dl (2.5-4.0); Total Protein 7.3 gm/dl (6.4-8.2); Troponin I 1.74 ng/ml (0-0.045)
[2018-11-16] MEDS ORDERED: HEPARIN SODIUM/DEXTROSE 25,000 UNITS/500 ML BAG IV SCH (12:00)
[2018-11-16] MEDS ORDERED: HEPARIN SOD (PORCINE) 1000 UNIT/ML 10 ML VIAL ONE (12:05)
--- NOTE | 2018-11-16 13:28 | History & Physical Report ---
Date of Service November 16, 2018 Assessment & Plan (1) Non-ST elevation [place] (NSTEMI): Pt is 73 y/o M with PMH CAD s/p SOO to LAD in 2008, NSTEMI s/p SOO to ramus and RCA in 06/19/2017, HTN, dyslipidemia, GERD presented with c/o intermittent chest burning x 3 weeks occurring with rest or activity. In ER pt afebrile, P:57-66, R: 18, BP: 148/95, 124/82, 98% on RA. No leukocytosis. Troponin: 1.7. EKG sinus rhythm, rate 60 with 1st degree AV block without acute ST elevation noted. CXR: no acute changes -In ER pt was given ASA 324mg po, Heparin IV was started -Cardiology was consulted and bedside echo ordered -NPO for now as plan for cardiac cath today -Continue metoprolol, plavix, statin, aspirin -Trend troponin -Repeat EKG in am -Lipid panel in am -Nitro prn CP and repeat EKG for CP -Cardiology consult, appreciate recommendations (2) HTN (hypertension): Stable -Continue metoprolol (3) Dyslipidemia: -Continue statin DVT Prophylaxis -On Heparin IV Full Code as per discussion with pt, however reports would not want on prolonged life support if poor prognosis Follows with Dr Calabrese for routine care Pt was seen and care coordinated with Dr Pena. See addendum History of Present Illness Chief Complaint: Chest burning Primary Care Provider: Stephan Calabrese MD Pt is 73 y/o M with PMH CAD s/p SOO to LAD in 2008, NSTEMI s/p SOO to ramus and RCA in 06/19/2017, HTN, dyslipidemia, GERD presented to ER with c/o chest burning. Reported that having intermittent chest burning for 3 weeks. Past week with intermittent chest burning and heaviness with SOB. Occurs mostly at rest, but has occurred with activity. Reports active and has recently been painting his house and reports has had some chest heaviness intermittently but reports that he didn't think much about it. He thought he was having acid reflux. Last night took nitroglycerin SL x 1 dose and doesn't think helped with symptoms. Currently pt denies any symptoms, and reports "only reason I'm getting checked out today is because was to visit my daughter in [place] soon". Denies any dizziness, syncope. Denies fever/chills, diaphoresis, N/V/D/C, VARELA, vision changes, neck pain, orthopnea, palpitations, cough, sore throat, choking, otalgia, rhinorrhea, abdominal pain, paresthesias, weakness, extremity weakness, extremity edema, rashes, urinary symptoms. 09/07/2018 Exercise stress echo: no inducible ischemia. EF: 55-59%, grade I diastolic dysfunction, significant valvular disease Allergies Allergy/AdvReac Type Severity Reaction Status Date / Time ticagrelor [From Brilinta] Allergy Unknown Verified 11/16/18 15:32 Home Medications Home Medications Medication Instructions Recorded Confirmed Type aspirin [Aspirin Low Dose] 81 mg PO DAILY 11/16/18 11/16/18 History clopidogrel 75 mg PO DAILY 11/16/18 11/16/18 History metoprolol tartrate 25 mg PO BID 11/16/18 11/16/18 History nitroglycerin 0.4 mg SUBLINGUAL DIRECTED 11/16/18 11/16/18 History rosuvastatin 40 mg PO QPM 11/16/18 11/16/18 History Past Med/Surg History Medical History GERD (gastroesophageal reflux disease) (Chronic) CAD (coronary artery disease) (Chronic) Dyslipidemia (Chronic) HTN (hypertension) (Chronic) Heart attack Surgical History History of colonoscopy (Chronic) 2016 History of cardiac catheterization (Chronic) Family History Other Coronary heart disease Diabetes Social History Preferred Language: Latvian Communication Ability: Effective Recycling Tech Required: No Beliefs That Will Affect Care: None Current Living Situation: Spouse Other Information That Helps Us Care for You: No Feels Safe at Home: Yes Safety Concerns: Feels Safe At This Time Smoking Status: Never smoker Hx Alcohol Use: Yes (1 glass wine, 1 bottle beer per day) Alcohol type: beer and wine Hx Substance Use: No Review of Systems Review of Systems: All systems reviewed & are unremarkable except as noted in HPI & below Physical Exam Physical Exam: General: no acute distress, WDWN Head: normocephalic, atraumatic Eyes: PERRL, EOM's intact, conjunctiva non-injected, anicteric ENT: normal inspection external ears, nose, mucous membranes moist Neck: supple, trachea midline Lungs: clear, no respiratory distress, no wheezing/rhonchi/rales CV: RRR, no murmur, no pretibial edema Abd: normal BS, soft, non-tender Ext: no cyanosis, no calf tenderness Neuro: A&O x 3, no focal deficits noted, normal affect Skin: warm, dry Results & Data Vital Signs (Past 12 Hours) Vital Signs Temp Pulse Resp BP Pulse Ox 11/16/18 13:00 60 16 126/78 97 11/16/18 12:30 63 13 113/80 96 11/16/18 12:00 64 17 124/102 H 96 11/16/18 11:38 57 L 23 124/82 96 11/16/18 10:53 66 18 98 11/16/18 10:39 36.4 C L 66 18 148/95 H 98 Laboratory Results Short CBC 11/16/18 11/16/18 Range/Units 10:55 10:55 WBC 8.22 (4.8-10.8) K/uL Hgb 17.3 (14.0-18.0) g/dL Hct 46.8 (42-52) % Plt Count 207 (130-400) K/uL Creatinine 1.20 (0.6-1.4) mg/dl BMP 11/16/18 10:55 Sodium 139 Potassium 4.4 Chloride 107 Carbon Dioxide 27 BUN 18 Creatinine 1.20 Glucose 103 H Calcium 9.3 Cardiac Enzymes 11/16/18 Range/Units 10:55 Troponin I 1.740 H* (0-0.045) ng/ml Liver Function 11/16/18 Range/Units 10:55 Total Bilirubin 0.7 (0.2-1) mg/dl AST 46 H (15-37) U/L ALT 33 (12-78) U/L Alkaline Phosphatase 86 (45-117) U/L Albumin 4.0 (3.4-5.0) gm/dl Diagnostic Findings CXR: IMPRESSION: 1. No acute cardiopulmonary disease. ECG Rate (beats per minute): 60 Rhythm: sinus rhythm Findings: + 1st degree AV block Code Status & VTE Plan VTE Prophylaxis Plan VTE Prophylaxis will be ordered: Yes Supervising Physician Co-Signing Physician Notes HISTORY: Record reviewed. Patient interviewed and examined in his room after cardiac catheterization. Care coordinated with Carey Jones PA-C. Please refer to her documentation for patient's history. Briefly, 73-year-old male with history of coronary artery disease, status post PCI, dyslipidemia, and other problems as noted. Presented to ED with burning in his chest, relieved by nitroglycerin. Serum troponin was elevated. Cardiology was consulted and urgent cardiac catheterization recommended. Found to have RCA lesion; successful PCI with drug-eluting stent performed. Doing well after procedure. No chest pain or shortness of breath. EXAM: General- no distress Lungs- clear to auscultation; no respiratory distress Cardiovascular- RRR; no murmur; no gallop; no JVD; no pretibial edema Abdomen- + bowel sounds, soft, nontender Extremities- no cyanosis; no calf tenderness; compression band applied to right wrist Neuro- alert, oriented Skin- warm & dry DATA: Serum troponin I = 1.74. Other lab studies as noted. Chest x-ray did not show any acute disease. EKG performed at 1044 reviewed and demonstrated sinus rhythm at 60/ minute, no acute ST or T wave abnormalities. ASSESSMENT AND PLAN: Non-ST elevation myocardial infarction. Successful PCI of RCA lesion. Continue antiplatelet therapy with aspirin and clopidogrel. Continue metoprolol. Continue rosuvastatin. Further management per Cardiology. Please refer to BABATUNDE Mcbride's documentation for discussion of other issues.
--- NOTE | 2018-11-16 14:15 | Cardiology Consultation ---
Date of Consultation November 16, 2018 Assessment & Plan (1) Non-ST elevation [place] (NSTEMI): Pt currently pain free Troponin is elevated and RCA distribution wall motion abnormalities are present on echocardiogram. Extensive history of coronary artery disease with stent placements to the LAD, r amus and PDA. Given his presentation I believe the most prudent course of action will be to proceed with direct coronary artery visualization and he will proceed for cardiac catheterization this afternoon. The patient states that he understands, he is agreeable with this plan and is excepting the possible risks. Further recommendations to follow He has been started on heparin and will be continued for now (2) CAD (coronary artery disease): Remote history of PCI to the LAD History of PCI to the ramus for 99% stenosis June 2017, gated by possible throm bus shower with POBA to the distal PDA and drug-eluting stent placement to the mid RCA The patient has been compliant with his aspirin and Plavix ever since PCI (3) GERD (gastroesophageal reflux disease): will consider initiation of treatment. History of Present Illness Reason for Consultation: NSTEMI Requesting Physician: Dr. Palacios History of Present Illness It was my pleasure to see Mr. Wong in consultation today November 16, 2018. He is a very pleasant 73-year-old gentleman who normally follows with of our cardiology practice. He presents to [facility] on 11/16/2018 with complaints of chest discomfort. He states that for the last several weeks has been noticing some substernal burning sensations. He describes this as completely different than the discomfort he had prior to his previous NSTEMI's as just something that he has been noticing. However, his discomfort then progressed to a concomitant sensation of chest pressure/heaviness. He is been doing work around his house lately painting his house climbing ladders and carrying paint cans and initially thought it might just been a muscle pull. Then last evening his pain was rather significant while he was sitting in a chair reading a book he took 1 sublingual nitroglycerin with improvement of his discomfort. This morning after waking the discomfort was still present slightly more severe and he came in to [facility] emergency department. Upon presentation his initial EKG was reportedly abnormal unfortunately I am personally unable to locate at this time. He was given sublingual nitroglycerin and his discomfort resolved. His EKG then normalized as well. Initial laboratory work came back showing positive troponin and cardiology was consulted. He was started on heparin by the ER, which I agree with. I saw and examined him in the emergency department he is completely pain-free at that time. A 2D echocardiogram was ordered and performed which showed inferior wall hypokinesis. He states he has been compliant with his medication at home and is not missed any doses of his aspirin or Plavix ever since his last 2 stent placements in June 2017. Allergies Allergy/AdvReac Type Severity Reaction Status Date / Time No Known Allergies Allergy Verified 11/16/18 11:37 Home Medications Home Medications Medication Instructions Recorded Confirmed Type aspirin [Aspirin Low Dose] 81 mg PO DAILY 11/16/18 11/16/18 History clopidogrel 75 mg PO DAILY 11/16/18 11/16/18 History metoprolol tartrate 25 mg PO BID 11/16/18 11/16/18 History nitroglycerin 0.4 mg SUBLINGUAL DIRECTED 11/16/18 11/16/18 History rosuvastatin 40 mg PO QPM 11/16/18 11/16/18 History Patient History Medical History GERD (gastroesophageal reflux disease) (Chronic) CAD (coronary artery disease) (Chronic) Dyslipidemia (Chronic) HTN (hypertension) (Chronic) Heart attack Surgical History History of colonoscopy (Chronic) 2016 History of cardiac catheterization (Chronic) Family History Other Coronary heart disease Diabetes Social History Preferred Language: Setswana Communication Ability: Effective Warp Hauler Required: No Beliefs That Will Affect Care: None Current Living Situation: Spouse Other Information That Helps Us Care for You: No Feels Safe at Home: Yes Safety Concerns: Feels Safe At This Time Smoking Status: Never smoker Hx Alcohol Use: Yes (1 glass wine, 1 bottle beer per day) Alcohol type: beer and wine Hx Substance Use: No Review of Systems Review of Systems: All systems reviewed & are unremarkable except as noted in HPI & below Physical Exam Physical Exam: General: Awake, alert and oriented x 3. No acute distress. HEENT: Normocephalic, atraumatic. Pupils equal, round and reactive to light and accommodation. Extraocular muscles are intact. Anicteric sclera. Moist mucous membranes. Neck: No JVD. No bruit. Cardiovascular: Regular. Positive S-4. Normal S-1 and S-2. No S-3. No murmurs or rubs. Pulmonary: Clear to auscultation B/L. No rales, rhonchi or wheezing Abdomen: Bowel sounds x 4, soft. No rebound, guarding or tenderness. No organomegaly. Extremities: No clubbing, cyanosis or edema. +2 pedal pulses bilaterally. Skin: Warm and dry. Results & Data Vital Signs (Past 12 Hours) Vital Signs Temp Pulse Resp BP Pulse Ox 11/16/18 13:00 60 16 126/78 97 11/16/18 12:30 63 13 113/80 96 11/16/18 12:00 64 17 124/102 H 96 11/16/18 11:38 57 L 23 124/82 96 11/16/18 10:53 66 18 98 11/16/18 10:39 36.4 C L 66 18 148/95 H 98
[2018-11-16] MEDS ORDERED: HEPARIN (PORCINE) 1000 UNIT/ML 10 ML (CATH LAB USE ONLY) ONE (14:30)
[2018-11-16] MEDS ORDERED: NiCARDipine HCL INJ 2.5 MG/ML 10 ML AMP ONE (14:30)
[2018-11-16] MEDS ORDERED: fentaNYL citrate 100 MCG/2 ML VIAL ONE (14:31)
[2018-11-16] MEDS ORDERED: NITROGLYCERIN/D5W 100MCG/ML 20ML SYR ONE (14:31)
[2018-11-16] MEDS ORDERED: MIDAZOLAM HCL 1 MG/ML 2ML VIAL ONE (14:31)
[2018-11-16] MEDS ORDERED: CLOPIDOGREL BISULFATE 300 MG TAB ONE (15:54)
--- NOTE | 2018-11-16 15:58 | Emergency Department Note ---
Entered by Ariana Abbott acting as a scribe for History of Present Illness General Chief complaint: Chest Pain Stated complaint: CHEST PAIN, HX OF [place] Time Seen by Provider: 11/16/18 10:46 Source: patient History of Present Illness Provider complaint: chest burning Onset (ago): week(s) 1 Location: chest Radiation: non-radiation Pain Consistency: + intermittent Maximum Pain Intensity: 3 Relieved By: + other (nitroglycerin ) Associated symptoms: + denies other symptoms; no nausea/vomiting The patient is a 73 y/o male who presents to the emergency department for evaluation of intermittent chest burning that began a week ago. The patient states that he is having chest burning that is non-radiating that has been getting worse. He notes that there are episodes of worse pain that he originally thought was heart burn. The patient reports last night the burning was more intense and he took a nitroglycerin which helped the pain so he was recommended to come to the ED for evaluation. The patient does note that he has a history of heart attack but has been doing things to live healthier since his most recent one last year. He slight shortness of breath with activity. The patient denies nausea, vomiting, and any other symptoms. Home Medications Home Medications Medication Instructions Recorded Confirmed Type aspirin [Aspirin Low Dose] 81 mg PO DAILY 11/16/18 11/16/18 History clopidogrel 75 mg PO DAILY 11/16/18 11/16/18 History metoprolol tartrate 25 mg PO BID 11/16/18 11/16/18 History nitroglycerin 0.4 mg SUBLINGUAL DIRECTED 11/16/18 11/16/18 History rosuvastatin 40 mg PO QPM 11/16/18 11/16/18 History Allergies Allergy/AdvReac Type Severity Reaction Status Date / Time ticagrelor [From Brilinta] Allergy Unknown Verified 11/16/18 15:32 Past Med/Surg History Medical History GERD (gastroesophageal reflux disease) (Chronic) CAD (coronary artery disease) (Chronic) Dyslipidemia (Chronic) HTN (hypertension) (Chronic) Heart attack Surgical History History of colonoscopy (Chronic) 2016 History of cardiac catheterization (Chronic) Family History Other Coronary heart disease Diabetes Social History Preferred Language: Lithuanian Communication Ability: Effective Automotive Product Specialist Required: No Beliefs That Will Affect Care: None Current Living Situation: Spouse Other Information That Helps Us Care for You: No Feels Safe at Home: Yes Safety Concerns: Feels Safe At This Time Smoking Status: Never smoker Hx Alcohol Use: Yes (1 glass wine, 1 bottle beer per day) Alcohol type: beer and wine Hx Substance Use: No Review of Systems See HPI for pertinent positives & negatives. and A total of 10 systems reviewed and were otherwise negative Physical Exam Vital Signs Vital Signs - 24 hr 11/16/18 10:39 11/16/18 10:53 11/16/18 11:02 Temperature 36.4 C L Temperature Source Oral Sepsis Recent Fever Within 48 Hours No Sepsis New/Unexplained Change in Mental Status No Sepsis Action Taken by Nursing No Action Required Pulse Rate 66 66 Pulse Rate from SpO2 Sensor Pulse Rhythm Regular Respiratory Rate 18 18 Respiratory Effort / Characteristics Non-Labored Spontaneous Non-Labored Spontaneous Respiratory Depth Normal Normal Respiratory Pattern Regular Blood Pressure 148/95 H Blood Pressure Mean 112 Blood Pressure Position Sitting Pulse Oximetry 98 98 Oxygen Delivery Method Room Air Room Air Room Air 11/16/18 11:38 11/16/18 12:00 11/16/18 12:30 Temperature Temperature Source Sepsis Recent Fever Within 48 Hours Sepsis New/Unexplained Change in Mental Status Sepsis Action Taken by Nursing Pulse Rate 57 L 64 63 Pulse Rate from SpO2 Sensor 59 L 62 Pulse Rhythm Respiratory Rate 23 17 13 Respiratory Effort / Characteristics Respiratory Depth Respiratory Pattern Blood Pressure 124/82 124/102 H 113/80 Blood Pressure Mean 96 109 91 Blood Pressure Position Pulse Oximetry 96 96 96 Oxygen Delivery Method Room Air Room Air Room Air 11/16/18 13:00 Temperature Temperature Source Sepsis Recent Fever Within 48 Hours Sepsis New/Unexplained Change in Mental Status Sepsis Action Taken by Nursing Pulse Rate 60 Pulse Rate from SpO2 Sensor 61 Pulse Rhythm Respiratory Rate 16 Respiratory Effort / Characteristics Respiratory Depth Respiratory Pattern Blood Pressure 126/78 Blood Pressure Mean 94 Blood Pressure Position Pulse Oximetry 97 Oxygen Delivery Method Room Air GENERAL: Patient is awake, alert, and in no acute distress.Patient is resting comfortably and showing no signs of anxiety EYES: The conjunctivae are clear. The pupils are round and reactive. EARS, NOSE, MOUTH AND THROAT: The nose is without any evidence of any deformity. Mucous membranes are moist.Tongue is midline NECK: The neck is nontender and supple. RESPIRATORY: Normal respiratory effort is noted. There is no evidence of wheezing rhonchi or rales to auscultation. CARDIOVASCULAR: Regular rate and rhythm noted. There no murmurs rubs or gallops normal S1 normal S2 GASTROINTESTINAL: The abdomen is soft. Bowel sounds are present in all quadrants. Abdomen is nontender. MUSCULOSKELETAL/EXTREMITIES: There is no evidence of gross deformity. Full range of motion is noted in the hips and shoulders. SKIN: There is no obvious evidence of any rash. There are no petechiae, pallor or cyanosis noted. NEUROLOGIC: Patient is awake alert and oriented x3. Course 1049: Past medical records reviewed. The patient was evaluated in room C04. A complete history and physical exam was performed. 1132: I checked on the patient and he is feeling comfortable now. 1156: I consulted with Dr. Juan Caldera Cardiology. 1158: I update the patient on the treatment plan. He has no chest pain currently. 1202: I spoke with Levi FINE for . She will evaluate for further management. Administered Medications Heparin Sodium/Dextrose (Heparin Sodium/Dextrose) 25,000 units in 500 mls @ 28 mls/hr IV .[id number] [facility] [place]; Protocol Stop: 12/16/18 11:59 Last Admin: 11/16/18 12:10 Dose: 1,400 units/hr, 28 mls/hr Documented by: [id number] Cosigned by: [id number] Discontinued Medications Al Hydrox/Mg Hydrox/Simethicone () 1 dose PO ONE ONE Stop: 11/16/18 10:52 Last Admin: 11/16/18 10:59 Dose: 1 dose Documented by: [id number] Aspirin (Aspirin) 324 mg PO NOW STA Stop: 11/16/18 10:51 Last Admin: 11/16/18 10:58 Dose: 324 mg Documented by: [id number] Heparin Sodium (Porcine) (Heparin Iv Bolus) Confirm Administered Dose 10,000 units .ROUTE .STK-MED ONE Stop: 11/16/18 12:06 Last Admin: 11/16/18 12:10 Dose: 6,000 units Documented by: [id number] Cosigned by: [id number] Pantoprazole Sodium (Protonix) 40 mg PO NOW STA Stop: 11/16/18 10:52 Last Admin: 11/16/18 10:58 Dose: 40 mg Documented by: [id number] Medical Decision Making Differential Diagnosis the differential was considered includes acute myocardial infarction, acute coronary syndrome, myocarditis, pericarditis, pericardial effusions /tamponad, esophageal perforation, thoracic aortic dissection, pulmonary embolism, pneumonia, pneumothorax, pancreatitis, shingles, acute cholecystitis, perforated abdominal viscus. Medical Records Attestation: I reviewed the patient's medical records. Home Medications Current Medication List: was personally reviewed by me Laboratory Data Attestation: I reviewed the patient's lab results. Result diagrams: 11/16/18 10:55 11/16/18 10:55 Lab Results 11/16/18 11/16/18 11/16/18 Range/Units 10:55 10:55 10:55 WBC 8.22 (4.8-10.8) K/uL RBC 5.12 (4.7-6.1) M/uL Hgb 17.3 (14.0-18.0) g/dL Hct 46.8 (42-52) % MCV 91.4 (80-100) fL MCH 33.8 (25-34) pg MCHC 37.0 H (32-36) g/dL RDW Std Deviation 42.3 (36.4-46.3) fL RDW Coeff of Susan 12.6 (11.5-14.5) % Plt Count 207 (130-400) K/uL MPV 8.9 (7.4-10.4) fL Immature Gran % (Auto) 0.0 % Neut % (Auto) 57.9 % Lymph % (Auto) 23.7 % Wise % (Auto) 13.7 % Eos % (Auto) 4.5 % Baso % (Auto) 0.2 % Immature Gran # (Auto) 0.00 (0.00-0.02) K/uL Neut # (Auto) 4.75 (1.4-6.5) K/uL Lymph # (Auto) 1.95 (1.2-3.4) K/uL Wise # (Auto) 1.13 H (0.11-0.59) K/uL Eos # (Auto) 0.37 (0-0.5) K/uL Baso # (Auto) 0.02 (0-0.2) K/uL PT 11.1 (9.0-12.0) Seconds INR 1.1 (0.9-1.1) APTT 25.5 (21.0-31.0) Seconds PTT Ratio 0.9 Sodium 139 (136-145) mmol/L Potassium 4.4 (3.5-5.1) mmol/L Chloride 107 (98-107) mmol/L Carbon Dioxide 27 (21-32) mmol/L Anion Gap 5.0 (3-11) BUN 18 (7-18) mg/dl Creatinine 1.20 (0.6-1.4) mg/dl Est Cr Clr Drug Dosing 60.4 ml/min Est GFR ( Amer) 69.1 Est GFR (Non-Af Amer) 59.6 BUN/Creatinine Ratio 15.3 (10-20) Glucose 103 H (70-99) mg/dl Calcium 9.3 (8.5-10.1) mg/dl Total Bilirubin 0.7 (0.2-1) mg/dl AST 46 H (15-37) U/L ALT 33 (12-78) U/L Alkaline Phosphatase 86 (45-117) U/L Troponin I 1.740 H* (0-0.045) ng/ml Total Protein 7.3 (6.4-8.2) gm/dl Albumin 4.0 (3.4-5.0) gm/dl Globulin 3.3 (2.5-4.0) gm/dl Albumin/Globulin Ratio 1.2 (0.9-2) Lipase 139 (73-393) U/L Imaging Data Radiologist's Impression: Radiology results as stated below per my review and the radiologist's interpretation: XR chest 1V portable CLINICAL HISTORY: 73 years-old Male presenting with Chest Pain. TECHNIQUE: Portable upright AP view of the chest was obtained. COMPARISON: 06/18/2017. FINDINGS: Atherosclerosis of the aortic arch. Cardiac silhouette normal in size. Minimal left basilar opacities, which are chronic. No pleural effusion or pneumothorax. Osseous structures normal. Upper abdomen normal. IMPRESSION: 1. No acute cardiopulmonary disease. Electronically signed by: Ike Simon M.D. 11/16/2018 11:05 AM ECG Data Attestation: I personally reviewed and interpreted this ECG as follows: Indication: chest pain Rate (beats per minute): 60 Rhythm: sinus rhythm Findings: + other (no acute ST segments) and + 1st degree AV block; no ectopy Comparison ECG Date: from (06/20/17) Change: the following changes noted (resolution of previous lateral ST depression noted) Blood Pressure Blood Pressure Findings: Elevated blood pressure Blood Pressure Disposition: further management by hospitalist MDM Narrative The patient is a 73-year-old male who presented to the emergency department for an evaluation of chest pain. The patient has been experiencing chest pain intermittently over the last 3 weeks. He does have a history of coronary artery disease and has had cardiac stents in the past. I discussed the patient's laboratory and radiographic studies with him. He was found to have signs of elevated troponin in the emergency department. He did have previous ST segment abnormalities on an old EKG which appear to be improved at this time. The patient's pain improved as well. I discussed the patient's condition with the on-call [facility] lead material handler. He was started on heparin. He was also given aspirin. I discussed his case with the on-call [facility] hospitalist group. They have agreed to evaluate the patient in the emergency department for further management and disposition. Impression & Plan Non-ST elevation [place] (NSTEMI), Chest pain, Elevated troponin Critical Care Time Critical Care Time: Yes Total Critical Care Time: 60 I have personally spent 60 minutes of critical care time in the direct management of this patient. This includes bedside care, interpretation of diagnostic studies, and testing, discussion with consultants, patient, and family members, and other required patient management activities. This 60 minutes is in excess of all separately billable procedures. Discharge Plan Visit Data *Final* Discharge Date/Time: 11/16/18 14:14 Chief Complaint: Chest Pain Stated Complaint: CHEST PAIN, HX OF [place] ED Provider: Horacio Palacios Discharge Problem: Non-ST elevation [place] (NSTEMI), Chest pain, Elevated troponin Patient Disposition: Admitted As Inpatient Discharge Instructions Interventions: ED Discharge Assessment Last Done: 11/16/18 14:14 Discharge Problem: Chest pain Qualifiers: Chest pain type: unspecified Qualified Code(s): R07.9 - Chest pain, unspecified The scribe's documentation has been prepared under my direction and personally reviewed by me in its entirety. I confirm that the note above accurately r eflects all work, treatment, procedures, and medical decision making performed by me.
--- NOTE | 2018-11-16 16:11 | Pre Anesthesia Assessment ---
Date of Service November 16, 2018 Pre Sedation Assessment Vital Signs Temp Pulse Resp BP Pulse Ox 11/16/18 14:14 52 L 12 132/84 97 11/16/18 14:00 52 L 12 132/84 97 11/16/18 13:30 57 L 14 147/83 H 97 11/16/18 13:00 60 16 126/78 97 11/16/18 12:30 63 13 113/80 96 11/16/18 12:00 64 17 124/102 H 96 11/16/18 11:38 57 L 23 124/82 96 11/16/18 10:53 66 18 98 11/16/18 10:39 97.5 F L 66 18 148/95 H 98 Cardiovascular RRR, no murmur, no edema Respiratory normal respiratory effort, lungs clear to auscultation Pre-Sedation Airway Assessment Smoking Status: Never smoker Hx Sleep Apnea: No Hx Difficult Intubation: No Short, Thick Neck: No Thyromental Distance: > or= 3.5 Finger Breadths Oral Cavity: + WNL Mallampati Class: III ASA: ASA3 NPO Status Date of Last Intake of Fluids: 11/16/18 Time of Last Intake of Fluids: 08:30 Date of Last Intake of Solid Food: 11/16/18 Time of Last Intake of Solid Foods: 08:30 Procedure Planning Contraindications for Sedation: none Current Medications Reviewed: Yes Notes The planned sedation has been discussed with the patient. Informed Consent was obtained. I have identified the patient, determined the appropriateness of sedation and have assessed the patient immediately prior to the procedure. All medicine(s) and interventions are by my order.
--- NOTE | 2018-11-16 16:11 | Post Anesthesia Assessment ---
Date of Service November 16, 2018 Post Sedation Assessment Vital Signs Temp Pulse Resp BP Pulse Ox 11/16/18 14:14 52 L 12 132/84 97 11/16/18 14:00 52 L 12 132/84 97 11/16/18 13:30 57 L 14 147/83 H 97 11/16/18 13:00 60 16 126/78 97 11/16/18 12:30 63 13 113/80 96 11/16/18 12:00 64 17 124/102 H 96 11/16/18 11:38 57 L 23 124/82 96 11/16/18 10:53 66 18 98 11/16/18 10:39 97.5 F L 66 18 148/95 H 98 Recovery Score Activity: Moves 4 extremities Respiration: Deep Breath/Cough Circulation: +/-20% PreAnes Value Consciousness: Fully Awake Oxygen Saturation: O2 needed for >90% Discharge Sedation Level of Care: Fast Track Phase II Post Sedation Plan On clinical assessment, the patient appears to have tolerated the sedation without complications. Patient is recovering as anticipated. Patient will continue to be monitored by nursing and may be discharged when sedation discharge criteria are met per below protocol. Upon Completions of procedure and additional 15 minutes continue every 5 minute vital signs and the P.A.R. score; then discharge to a Phase I or Fast Track to Phase II per the following guidelines: * Discharge Patient to appropriate Phase II area if PAR is 8 or greater or return to pre- procedure baseline. The post - procedure orders will be as directed. * If PAR score is less than 8 or not return to pre-procedure baseline then zhou ent will follow Phase I monitoring till PAR is reached for Phase II. The Phase I may be done in procedure room or may call to secure a Phase I area. * If naloxone or flumazenil are used for reversal, hold in Phase I for continued monitoring from when last reversal dose was given for a minimum of 60 minutes or longer pending the nurse and/or physician discretion of patient condition before discharge to Phase II. Please call the Sedation Physician to re-evaluate and complete post-note for discharge to Phase II area. Do NOT discharge from procedure sedation or Phase 1 until post- sedation e valuation note is complete by procedure /sedation MD Sedation Discharge Instructions to be given to the patient at discharge to home.
--- NOTE | 2018-11-16 16:25 | Cardiac Catheterization ---
[facility] Data: Chief Commercial Officer Cardiac Status Clinical evaluation leading to the procedure CAD Presenation: Non STEMI Anginal Classification: CCS IV Heart Failure: No Cardiogenic Shock within 24 Hours: No Cardiac Arrest within 24 Hours: No Imaging Studies Past 6 Months: No Stress Studies Past 6 Months: No Diagnostic Physicians Name: Chaparro Brink MD Status: Elective Closure Device Percutaneous Entry Location: Radial Closure Device: Radial Band Recommendations: PCI without planned CABG PCI Indication: PCI for high risk Non-PRAVIN Lesion Segment Name: mid RCA Culprit Artery: Yes Stenosis Prior to Rx (%): 99 Chronic Total Occlusion: No IVUS: No FFR: No Pre-Procedure DALILA Flow: 2 Previously Treated Lesion: No Lesion Complexity: Non-High/Non-C Lesion Length (mm): 12 Thrombus Present: Yes Bifurcation Lesion: No Guidewire Across Lesion: Stenosis Post-Procedure (%): 0 Post-Procedure DALILA Flow: 3 Devices(s) Deployed: Yes Yes Intraprocedure Events Significant Disection: No Perforation: No Cardiac Cath Procedure Full Procedure Date November 16, 2018 Pre-Procedure Diagnosis Pre-Procedure Diagnosis: Non STEMI AUC Score AUC Score: 7 Post-Procedure Diagnosis Post-Procedure Diagnosis: Severe CAD, Successful PCI and Normal Intracardiac Pressures Procedure(s) Performed Procedure(s) Performed: Coronary Angiography, Left Heart Cath and Drug Eluting Stent Drafter Patent Chaparro Brink MD Compliance Nurse(s) Marciano Estimated Blood Loss Estimated Blood Loss: 10 Medication(s) Medication(s): Clopidogrel, Fentanyl, Heparin, Lidocaine 1%, Nicardipine, Nitroglycerin and Versed Summary of Findings Indication: High risk NSTEMI Access: 6 Fr right radial artery Catheters: JR4 guide Findings: LM -luminal irregularity LAD -patent proximal to mid stents with diffuse 40% in-stent restenosis, distal luminal irregularities as wraps around apex. Circumflex -moderate caliber vessel, 20 to 30% mid to distal disease. Large OM1 with widely patent proximal stent and minimal in-stent restenosis. RCA -dominant, large caliber vessel, 99% focal stenosis just distal to prior mid RCA stent, 2030% distal RCA stenosis, luminal irregularities in PDA, PLB LVEDP -6 -- PCI -- Antithrombotic therapy: Heparin, clopidogrel Procedure: RCA cannulated with JR4 guide Software Test Automation Engineer 50 wire passed across lesion into distal vessel Mid RCA lesion predilated with 3.0 compliant balloon Dilated lesion stented with 4.0 x 18 mm [place] drug-eluting stent Stent post-dilated with 4.5 noncompliant balloon IC vasodilators administered for spasm Post procedure DALILA 3 flow, stent well expanded with minimal residual stenosis and no apparent cardiac complications. Arterial Closure: TR band Summary: 1. Severe single vessel coronary artery disease -Focal 99% mid RCA stenosis just distal to prior stent Patent proximal to mid LAD stents with 40% ISR Widely patent proximal OM1 stent 2. Normal intracardiac filling pressure 3. Successful PCI of mid RCA with single drug-eluting stent overlapping distal aspect of prior stent (4.0 x 18 mm Charli; postdilated with 4.5 NC). Recommendations: To PCU for continued monitoring Loaded with clopidogrel 300 mg in cath Continue dual-antiplatelet therapy for at least one year, likely indefinitely Continue statin, and ASCVD risk factor modification Consult cardiac Rehab Hemodynamics Rest Ao:: 106/62/82 Final Ao: 99/62/79 LV: 111/6 Recommendations Recommendations: PCI without planned CABG Specimens Specimens: None Radiation Exposure (mGy) 2048 Contrast (mls) 135 Fluids (cc crystalloids) Fluids (cc crystalloids): 102 Drains Drains: none Anesthesia moderate Procedural Complication(s) None Disposition PCU I attest to the content of the Intraoperative Record and any orders documented therein. Any exceptions are noted below.
[2018-11-16] MEDS ORDERED: ONDANSETRON INJ 2 MG/ML 2 ML VIAL IV PRN (16:29)
[2018-11-16] MEDS ORDERED: SODIUM CHLORIDE 0.9% 1000ML 1,000 ML IV SCH (16:30)
[2018-11-16] MEDS ORDERED: NITROGLYCERIN SL 0.4 MG/TAB TAB SL PRN (16:35)
[2018-11-16] MEDS ORDERED: ACETAMINOPHEN 325 MG TAB PO PRN (16:35)
[2018-11-16] MEDS: ROSUVASTATIN CALCIUM 20 MG TAB PO SCH (21:05)
[2018-11-16] MEDS: METOPROLOL TARTRATE 25 MG TAB PO SCH (21:05)
[2018-11-17 06:04] LABS: Hematocrit (blood only) 45.1 % (42-52); Hemoglobin 16.1 g/dL (14.0-18.0); Mean Corpuscular Hemoglobin 32.8 pg (25-34); Mean Corpuscular Hgb Conc 35.7 g/dL (32-36); Mean Corpuscular Volume 91.9 fL (80-100); Mean Platelet Volume 9.1 fL (7.4-10.4); Platelet Count 173 K/uL (130-400); RDW Coefficient of Variation 12.8 % (11.5-14.5); RDW Standard Deviation 42.7 fL (36.4-46.3); Red Blood Count 4.91 M/uL (4.7-6.1); White Blood Count 7.04 K/uL (4.8-10.8)
[2018-11-17 06:35] LABS: BUN Creatinine Ratio 12.9 (10-20); Calcium 8.6 mg/dl (8.5-10.1); Est GFR (African American) 69.1; Est GFR (Non-African American) 59.6
[2018-11-17] MEDS: ASPIRIN 81 MG ECTAB PO SCH (07:59)
[2018-11-17] MEDS: CLOPIDOGREL BISULFATE 75 MG TAB PO SCH (07:59)
[2018-11-17] MEDS: METOPROLOL TARTRATE 25 MG TAB PO SCH ×2 (08:00→20:12)
[2018-11-17] MEDS ORDERED: CLOPIDOGREL BISULFATE 75 MG TAB PO SCH (09:00)
[2018-11-17] MEDS ORDERED: ASPIRIN 81 MG ECTAB PO SCH (09:00)
--- NOTE | 2018-11-17 16:46 | Cardiology Progress Note ---
Date of Service November 17, 2018 Assessment & Plan (1) Non-ST elevation [place] (NSTEMI): s/p PCI to 99% mid RCA lesion just after previous RCA stent has remained pain free but troponin elevated overnight continued on asa/plavix/crestor will monitor on tele tonight echo did show some hypokinesis of the inferior wall, will repeat echo as outpatient in 3 months to follow (2) CAD (coronary artery disease): previous stents widely patent LDL of 46, unfortunately, continues to produce atherosclerotic disease already on max dose crestor with bp well controlled to prevent further proliferation of atherosclerotic disease would recommend initiation of PCSK9 inhibitor will arrange for monthly Repatha as an outpatient (3) GERD (gastroesophageal reflux disease): will consider initiation of treatment. Subjective Pt seen and examined, at bedside. States that he feels well and is anxious for discharge. Denies cp, sob, palpitations, lightheadedness or dizziness. A little tired today, unrestful night. tele reviewed: sinus rhythm without arrhythmia or significant ectopy. Review of Systems Review of Systems: All systems reviewed & are unremarkable except as noted in HPI & below Physical Exam Physical Exam: General: Awake, alert and oriented x 3. No acute distress. HEENT: Normocephalic, atraumatic. Pupils equal, round and reactive to light and accommodation. Extraocular muscles are intact. Anicteric sclera. Moist mucous membranes. Neck: No JVD. No bruit. Cardiovascular: Regular. Positive S-4. Normal S-1 and S-2. No S-3. No murmurs or rubs. Pulmonary: Clear to auscultation B/L. No rales, rhonchi or wheezing Abdomen: Bowel sounds x 4, soft. No rebound, guarding or tenderness. No organomegaly. Extremities: No clubbing, cyanosis or edema. +2 pedal pulses bilaterally. Skin: Warm and dry. Results & Data Vital Signs (Past 12 Hours) Vital Signs Temp Pulse Pulse Resp BP Pulse Ox 11/17/18 15:58 76 11/17/18 15:24 36.5 C 92 H 18 107/74 96 11/17/18 11:41 36.5 C 93 H 17 111/75 94 11/17/18 08:01 68 110/78 11/17/18 08:00 59 L 11/17/18 07:36 36.5 C 88 18 113/76 95
--- NOTE | 2018-11-17 19:30 | Hospitalist Progress Note ---
Date of Service November 17, 2018 Assessment & Plan (1) Non-ST elevation [place] (NSTEMI): Present on admission with chest discomfort Troponin on admission 1.7 EKG on admission showed sinus rhythm, rate 60 with 1st degree AV block without acute ST elevation noted. CXR showed no acute changes In ER pt was given ASA 324mg po and was starting on Heparin IV drip S/P cardiac cath done yesterday showed severe single vessel coronary artery disease Focal 99% mid RCA stenosis just distal to prior stent S/P Successful PCI of mid RCA with single drug-eluting stent overlapping distal aspect of prior stent Cardiology on board Continue dual-antiplatelet therapy with plavix and aspirin for at least one year, likely indefinitely Continnue metoprolol 25mg BID Continue statin, and ASCVD risk factor modification Will refer to cardiac Rehab Continue Monitor in PCU closely (2) HTN (hypertension): Stable Continue metoprolol (3) Dyslipidemia: Continue statin DVT Prophylaxis Heparin IV drip D/C Pt is ambulated CODE STATUS Full Code Subjective Pt was seen and examined Lying in bed with no distress Pt said that he feels much better today He has been walking in the hallway with no discomfort Denies any chest pain, palpitation, dizziness and SOB Physical Exam Physical Exam: General- No acute distress Head- atraumatic Eyes- PERRL, EOMI, ENT- oropharynx clear Neck- supple, no JVD Lungs- clear to auscultation Heart- regular rhythm; no murmur Abdomen- normal bowel sounds, soft, nontender Extremities- no calf tenderness, right radial /wrist showed no hematoma Neuro- alert, oriented x 3; PERRL, EOMI; no facial palsy; no dysarthria Skin- warm & dry Results & Data Vital Signs (Past 12 Hours) Vital Signs Temp Pulse Pulse Resp BP Pulse Ox 11/17/18 15:58 76 11/17/18 15:24 36.5 C 92 H 18 107/74 96 11/17/18 11:41 36.5 C 93 H 17 111/75 94 11/17/18 08:01 68 110/78 11/17/18 08:00 59 L 11/17/18 07:36 36.5 C 88 18 113/76 95
[2018-11-17] MEDS: ROSUVASTATIN CALCIUM 20 MG TAB PO SCH (20:12)
[2018-11-18] MEDS: CLOPIDOGREL BISULFATE 75 MG TAB PO SCH (09:01)
[2018-11-18] MEDS: ASPIRIN 81 MG ECTAB PO SCH (09:01)
[2018-11-18] MEDS: METOPROLOL TARTRATE 25 MG TAB PO SCH (09:01)
--- NOTE | 2018-11-18 11:14 | Hospitalist Progress Note ---
Date of Service November 18, 2018 Assessment & Plan (1) Non-ST elevation [place] (NSTEMI): Present on admission with chest discomfort Troponin on admission 1.7 EKG on admission showed sinus rhythm, rate 60 with 1st degree AV block without acute ST elevation noted. CXR showed no acute changes In ER pt was given ASA 324mg po and was starting on Heparin IV drip S/P cardiac cath done yesterday showed severe single vessel coronary artery disease Focal 99% mid RCA stenosis just distal to prior stent S/P Successful PCI of mid RCA with single drug-eluting stent overlapping distal aspect of prior stent Cardiology on board Continue dual-antiplatelet therapy with plavix and aspirin for at least one year, likely indefinitely Continue metoprolol 25mg BID Continue statin, and ASCVD risk factor modification Will refer to cardiac Rehab Continue Monitor in PCU closely OK from cardiology standpoint to discharge home (2) HTN (hypertension): Stable Continue metoprolol (3) Dyslipidemia: Continue statin DVT Prophylaxis Heparin IV drip D/C Pt is ambulated CODE STATUS Full Code Disposition Discharge home today Follow up with Primary care provider Follow up with cardiology in 2 weeks Subjective Pt was seen and examined Lying in bed with no distress Pt said that he feels fine He has been walking in the hallway with no discomfort Denies any chest pain, palpitation, dizziness and SOB Physical Exam Physical Exam: General- No acute distress Head- atraumatic Eyes- PERRL, EOMI, ENT- oropharynx clear Neck- supple, no JVD Lungs- clear to auscultation Heart- regular rhythm; no murmur Abdomen- normal bowel sounds, soft, nontender Extremities- no calf tenderness, right radial /wrist showed no hematoma Neuro- alert, oriented x 3; PERRL, EOMI; no facial palsy; no dysarthria Skin- warm & dry Results & Data Vital Signs (Past 12 Hours) Vital Signs Temp Pulse Pulse Resp BP BP Pulse Ox 11/18/18 09:05 80 121/79 11/18/18 08:00 36.4 C L 66 18 111/74 95 11/18/18 04:00 36.8 C 63 16 103/67 94 11/17/18 23:15 37.5 C 83 18 136/70 96
--- NOTE | 2018-11-18 12:01 | Cardiology Progress Note ---
Date of Service November 18, 2018 Assessment & Plan (1) Non-ST elevation DC (NSTEMI): s/p PCI to 99% mid RCA lesion just after previous RCA stent has remained pain free but troponin elevated overnight continued on asa/plavix/crestor will monitor on tele tonight echo did show some hypokinesis of the inferior wall, will repeat echo as outpatient in 3 months to follow my office will call to arrange cardiac f/u in approx 2 weeks (2) CAD (coronary artery disease): previous stents widely patent LDL of 46, unfortunately, continues to produce atherosclerotic disease already on max dose crestor with bp well controlled to prevent further proliferation of atherosclerotic disease would recommend initiation of PCSK9 inhibitor will arrange for monthly Repatha as an outpatient (3) GERD (gastroesophageal reflux disease): will consider initiation of treatment. Subjective Pt seen and examined without complaint, anxious for discharge. Denies cp, sob, palpitations, lightheadedness, dizziness or syncope. tele reviewed: sinus rhythm without arrhythmia or significant ectopy. Review of Systems Review of Systems: All systems reviewed & are unremarkable except as noted in HPI & below Physical Exam Physical Exam: General: Awake, alert and oriented x 3. No acute distress. HEENT: Normocephalic, atraumatic. Pupils equal, round and reactive to light and accommodation. Extraocular muscles are intact. Anicteric sclera. Moist mucous membranes. Neck: No JVD. No bruit. Cardiovascular: Regular. Positive S-4. Normal S-1 and S-2. No S-3. No murmurs or rubs. Pulmonary: Clear to auscultation B/L. No rales, rhonchi or wheezing Abdomen: Bowel sounds x 4, soft. No rebound, guarding or tenderness. No organomegaly. Extremities: No clubbing, cyanosis or edema. +2 pedal pulses bilaterally. Skin: Warm and dry. Results & Data Vital Signs (Past 12 Hours) Vital Signs Temp Pulse Pulse Resp BP BP Pulse Ox 11/18/18 11:51 36.6 C 70 18 110/77 96 11/18/18 11:22 36.4 C L 66 80 18 121/79 136/70 95 11/18/18 09:05 80 121/79 11/18/18 08:00 36.4 C L 66 18 111/74 95 11/18/18 04:00 36.8 C 63 16 103/67 94
--- NOTE | 2018-11-20 09:36 | Discharge Summary ---
Date of Service November 18, 2018 Admission HPI Per Admitting Provider Pt is 73 y/o M with PMH CAD s/p SOO to LAD in 2008, NSTEMI s/p SOO to ramus and RCA in 06/19/2017, HTN, dyslipidemia, GERD presented to ER with c/o chest burning. Reported that having intermittent chest burning for 3 weeks. Past week with intermittent chest burning and heaviness with SOB. Occurs mostly at rest, but has occurred with activity. Reports active and has recently been painting his house and reports has had some chest heaviness intermittently but reports that he didn't think much about it. He thought he was having acid reflux. Last night took nitroglycerin SL x 1 dose and doesn't think helped with symptoms. Currently pt denies any symptoms, and reports "only reason I'm getting checked out today is because was to visit my daughter in [place] soon". Denies any dizziness, syncope. Denies fever/chills, diaphoresis, N/V/D/C, VARELA, vision changes, neck pain, orthopnea, palpitations, cough, sore throat, choking, otalgia, rhinorrhea, abdominal pain, paresthesias, weakness, extremity weakness, extremity edema, rashes, urinary symptoms. 09/07/2018 Exercise stress echo: no inducible ischemia. EF: 55-59%, grade I diastolic dysfunction, significant valvular disease Admission Exam Per Admitting Provider General: no acute distress, WDWN Head: normocephalic, atraumatic Eyes: PERRL, EOM's intact, conjunctiva non-injected, anicteric ENT: normal inspection external ears, nose, mucous membranes moist Neck: supple, trachea midline Lungs: clear, no respiratory distress, no wheezing/rhonchi/rales CV: RRR, no murmur, no pretibial edema Abd: normal BS, soft, non-tender Ext: no cyanosis, no calf tenderness Neuro: A&O x 3, no focal deficits noted, normal affect Skin: warm, dry Principal Diagnosis Non-ST elevation HI (NSTEMI) CAD (coronary artery disease) HTN (hypertension) Dyslipidemia Discharge Exam General- No acute distress Head- atraumatic Eyes- PERRL, EOMI, ENT- oropharynx clear Neck- supple, no JVD Lungs- clear to auscultation Heart- regular rhythm; no murmur Abdomen- normal bowel sounds, soft, nontender Extremities- no calf tenderness, right radial /wrist showed no hematoma Neuro- alert, oriented x 3; PERRL, EOMI; no facial palsy; no dysarthria Skin- warm & dry Discharge Data Allergies Allergy/AdvReac Type Severity Reaction Status Date / Time ticagrelor [From Brilinta] Allergy Unknown Verified 11/16/18 15:32 Consultations 11/16/18 11:56 ED Decision to Admit Stat 11/16/18 16:28 Consult Cardiac Rehabilitation Routine 11/16/18 16:35 Consult Cardiology Routine Consult Case Management - Discharge Planning Routine XR chest 1V portable CLINICAL HISTORY: 73 years-old Male presenting with Chest Pain. TECHNIQUE: Portable upright AP view of the chest was obtained. COMPARISON: 06/18/2017. FINDINGS: Atherosclerosis of the aortic arch. Cardiac silhouette normal in size. Minimal left basilar opacities, which are chronic. No pleural effusion or pneumothorax. Osseous structures normal. Upper abdomen normal. IMPRESSION: 1. No acute cardiopulmonary disease. Electronically signed by: Ike Simon M.D. 11/16/2018 11:05 AM Dictated: 11/16/18 1104 Transcribed: 11/16/18 1104 Procedures Performed Operation Date: 11/16/18 13:50 Actual Procedures p Drug Eluting Stent SGl Vessel - Hilario Brink MD p Cath, Left with Cors and Vent - Hilario Brink MD s Cineradiography w/Routine Exam - Hilario Brink MD Hospital Course (1) Non-ST elevation HI (NSTEMI): Present on admission with chest discomfort Troponin on admission 1.7 EKG on admission showed sinus rhythm, rate 60 with 1st degree AV block without acute ST elevation noted. CXR showed no acute changes In ER pt was given ASA 324mg po and was starting on Heparin IV drip S/P cardiac cath done yesterday showed severe single vessel coronary artery disease Focal 99% mid RCA stenosis just distal to prior stent S/P Successful PCI of mid RCA with single drug-eluting stent overlapping distal aspect of prior stent Cardiology on board Continue dual-antiplatelet therapy with plavix and aspirin for at least one year, likely indefinitely Continue metoprolol 25mg BID Continue statin, and ASCVD risk factor modification Will refer to cardiac Rehab Continue Monitor in PCU closely [place] from cardiology standpoint to discharge home (2) HTN (hypertension): Stable Continue metoprolol (3) Dyslipidemia: Continue statin DVT Prophylaxis Heparin IV drip D/C Pt is ambulated CODE STATUS Full Code Disposition Discharge home today Follow up with Primary care provider Follow up with cardiology in 2 weeks Total Time Total Time Spent Total Time Spent (In Minutes): 35 minutes Total Time Includes: Examination of the Patient, Discharge Planning, Medication Reconciliation, Communication With Other Providers and Other Discharge Plan Discharge Items Patient Disposition: Home - Self-Care Reason For Visit: NSTEMI Discharge Diagnosis: Non-ST elevation HI (NSTEMI) CAD (coronary artery disease) HTN (hypertension) Dyslipidemia Activity: As commented below Non-emergency contact: Primary Care Provider and [employer] Call non-emergency contact if: you have any medication questions and your wound pain has increased Follow-up/Referrals: Stephan Calabrese MD [Primary Care Provider] - Diet: Heart Healthy Addtl Attending Provider Instructions: Follow up with your primary care provider within 1 week (Office will call you for the follow up appointment) Follow up with cardiology (Office will call you with the follow up appointment) Continue plavix and aspirin non stop. You will need a repeat ECHO in 3 to 6 months (Your cardiology will schedule that for you) Your physician or cardiology will refer you to the cardiac rehab Keep the area for the cardiac cath clean and dry to avoid any infection Do not use creams, lotions or ointment on the wound site Do not take a bath, tub soak, go in a Jacuzzi, or swim in a pool or haley for one week after the procedure. Do not participate in strenuous activities for 3 days after the procedure. Gradually increase your activities until you reach your normal activity level within two days after the procedure. Avoid heavy lifting (more than 10 pounds) and pushing or pulling heavy objects for the first 5 days after the procedure. Pending Studies at Discharge: No Stand-Alone Forms: Call Back Authorization, My [facility] Medications and DC Order Prescriptions: Continued clopidogrel 75 mg tablet 75 mg PO DAILY RF: 0 aspirin [Aspirin Low Dose] 81 mg Tablet,Delayed Release (Dr/Ec) 81 mg PO DAILY RF: 0 nitroglycerin 0.4 mg Tablet, Sublingual 0.4 mg sublingual DIRECTED RF: 0 rosuvastatin 40 mg tablet 40 mg PO QPM RF: 0 metoprolol tartrate 25 mg tablet 25 mg PO BID RF: 0 Discharge Orders: Discharge Order (Routine); Ordered 11/18/18 Ordered By: Chirag Villarreal Admission Data Admit Date/Time: 11/16/18 13:25 Attending Provider: Chirag Villarreal Admit Provider: Marcio Pena Primary Care Provider: Stephan Calabrese Other Providers: Marcio Pena ; Moy Martinez Other Interventions: Discharge Summary Assessment (RN) Last Done: 11/18/18 11:22 DC Date/Time DO NOT enter until pt leaves facility: 11/18/18 12:45
== END 2018-11-18 12:45 | disposition home or self-care (01) | DRG 247 ==
LOC: ED 10:36 → SUATTDRO 13:25 → 2S 13:25